=== PATIENT | male | born 1945 | race Caucasian/White ===

== ENCOUNTER 2019-09-09 10:59 | Inpatient (IN) | payer MEDICARE, OTHER, SELFPAY ==
[2019-09-09] VITALS (21 sets, daily range): BP systolic 81–215; BP diastolic 45–108; PULSE 74–104; RESP 11–30; TEMP 36.4–37.1; O2SAT 85–98; BMI 35.6
--- NOTE | 2019-09-09 | PATH_ITS ---
[facility] Accession Number: [id number] . 01 Material submitted: . PART A: small bowel - SMALL BOWEL PART B: gallbladder - GALLBLADDER AND CONTENTS . 01 Clinical history: . STOMACH CRAMPS, BAD . 02 Diagnosis: A. Small Bowel, Resection: Segment of small bowel with active inflammation, mural hemorrhage and serositis, consistent with ischemic enteritis. Histologically viable margins of resection. No evidence of neoplasm. . B. Gallbladder nad Contents, Cholecystectomy: Mild chronic cholecystitis with cholelithiasis. One benign cystic duct lymph node. No evidence of neoplasm. [facility] 09/13/2019 1128 Local . 02 Electronically signed: . Vasiliy Hanson MD, PhD, Pathologist NPI- [id number] . 01 Gross description: . (A) Received in formalin, labeled small bowel, is an unoriented segment of small bowel (length-77.5 cm, resection margin #1 diameter-2.1 cm, resection margin #2 diameter-2.5 cm) with attached mesentery (up to 6.0 cm in depth). The resection margins are received stapled. The serosa is red-brown, dusky, smooth and shiny. The mucosa is vera and red-brown and predominantly congested. A minimal amount of normal serosa and mucosa are identified at the resection margins. No nodules, masses, lesions, perforations or obstructions are identified. The resection margins are inked blue. Section code: (A1) resection margin #1, longitudinal healthcare sales representative sections; (A2) resection margin #2, healthcare sales representative longitudinal sections; (A3-A6) healthcare sales representative serial sections submitted from resection margin #1 to #2, each approximately 10 cm apart; (A7, A8) mesentery, healthcare sales representative serial sections. Note: After opening, this specimen has been reviewed by Dr. Kiarra Hanson. (B) Received in formalin, labeled gallbladder, is an intact gallbladder (length-12.6 cm, diameter-3.0 cm) with shields-purple smooth shiny serosa and a patent cystic duct. A 1.2 x 0.7 x 0.5 cm lymph node is identified. The lumen contains dark green viscous bile and multiple vera-yellow smooth hard calculi (4.5 x 2.3 x 1.2 cm in aggregate). The mucosa is green, smooth and flat. The wall is up to 0.1 cm thick. No nodules, masses or lesions are identified. Section code: (B1) cystic duct resection margin and two serial sections from the body; (B2) two longitudinal sections from the fundus; (B3) one bisected lymph node. ([id number]) /MRV 09/12/2019 1509 Local . 02 Pathologist provided ICD-10: K80.60, K56.609, K55.9 . 02 CPT . 637280, [id number] Performed at: 01 [facility] [address] [place] [address] [id number] MD Arcenio Guthrie MD Phone: [phone] Performed at: 02 [facility] [address] [place] [address] [id number] MD Lorraine Rodríguez MD Phone: [phone]
[2019-09-09] MEDS: SODIUM CHLORIDE 0.9% 1,000 ML 150 ML IV ×2 (11:33→20:40)
[2019-09-09] MEDS: ONDANSETRON 4 MG/2 ML INJ (11:33)
[2019-09-09 11:43] LABS: Add Manual Diff / Slide Review NO; Basophils Absolute Auto 100 /uL (0-100); Basophils Percent Auto 1.1 % (0-2); Eosinophils Absolute Auto 200 /uL (0-450); Hematocrit 46.9 % (41-53); Hemoglobin 16.5 g/dL (13.5-17.5); Lymphocytes Absolute Auto 2400 /uL (1100-4500); Mean Corpuscular HGB Conc 35.2 % (30-36); Mean Corpuscular Hemoglobin 30.7 PG (26-34); Mean Corpuscular Volume 87.2 fL (80-100); Monocytes Absolute Auto 1100 /uL (0-900); Monocytes Percent Auto 8.8 % (3-14); Neutrophils Absolute Auto 8200 /uL (1500-7000); Neutrophils Percent Auto 68.1 % (50-75); Platelet Count 195 X10^3/uL (150-400); Red Blood Cell Count 5.38 X10^6/uL (4.5-5.9); Red Cell Distribution Width 14.5 % (11.6-14.8); White Blood Cell Count 12.1 X10^3/uL (4.5-11.0)
[2019-09-09 11:50] LABS: Lactate (Lactic Acid) 1.7 mmol/L (0.7-2.1)
[2019-09-09 11:51] LABS: Alanine Aminotransferase 22 IU/L (<50); Albumin 4.5 g/dL (3.5-5.0); Albumin Globulin Ratio 1.5 (1.0-2.8); Alkaline Phosphatase 59 U/L (38-126); Aspartate Aminotransferase 24 IU/L (17-59); BUN Creatinine Ratio 28.6 (6-22); Blood Urea Nitrogen 20 mg/dL (9-20); Calcium 9.4 mg/dL (8.4-10.2); Carbon Dioxide 24 mmol/L (22-32); Chloride 103 mmol/L (98-107); Estimated Glomerular Filt Rate > 60.0 mL/min (>60); Globulin 3.1 g/dL (1.7-4.1); Glucose 338 mg/dL (80-110); HEMOLYSIS 21 (0-50); Lipase 110 U/L (23-300); Potassium 4.1 mmol/L (3.4-5.1); Sodium 138 mmol/L (137-145); Total Protein 7.6 g/dL (6.3-8.2)
--- NOTE | 2019-09-09 12:02 | DI.CT.S_ITS ---
PROCEDURE: CT ABDOMEN PELVIS W CON INDICATIONS: upper bilateral and RLQ pain with nausea TECHNIQUE: After the administration of intravenous contrast, 5 mm thick sections acquired from the diaphragm to the symphysis. 5 mm coronal and sagittal reformats were acquired. For radiation dose reduction, the following was used: automated exposure control, adjustment of mA and/or kV according to patient size. COMPARISON: None. FINDINGS: Image quality: There is motion artifact slightly limiting evaluation. ABDOMEN: Lung bases: There is mild dependent atelectasis bilaterally. Heart size is normal. Solid organs: Evaluation of the liver demonstrates no focal hepatic lesions. There are a few peripherally calcified gallstones within the gallbladder. Mild gallbladder wall thickening is demonstrated. Biliary system is non-dilated. Pancreas enhances normally. No peripancreatic fat stranding or fluid collections. No pancreatic duct dilatation. The spleen is normal in size. No adrenal nodules. Kidneys demonstrate no hydronephrosis. Peritoneum and bowel: There is segmental dilatation of small bowel loops in the right upper quadrant, measuring up to 3.5 cm in diameter with associated air-fluid levels. The proximal and distal transition points of this segmental dilatation a located in close proximity centered on series 2 image 40 and on coronal image 30. There is associated mild edema within the mesentery along this dilated segment. Small bowel loops proximal and distal to this dilated segment are nondistended. The findings are consistent with a probable early high-grade closed-loop small bowel obstruction. The appendix is normal in appearance. The colon demonstrates normal caliber and wall thickness. No free fluid or air. Nodes and vessels: No retroperitoneal or mesenteric adenopathy by size criteria. Aorta and inferior vena cava are normal in size. Miscellaneous: No ventral hernias. PELVIS: Genitourinary: Bladder wall thickness is normal. There is prominent distention of the urinary bladder. Miscellaneous: No inguinal hernias or adenopathy. Bones: No suspicious bony lesions. There is grade 2 anterolisthesis at L5-S1 measuring approximately 1 cm. There is an associated left-sided pars defect at L5. No vertebral body compression fractures. IMPRESSION: 1. Segmental dilatation of the small bowel in the right upper quadrant with air-fluid levels and adjacent transition points. The findings are suggestive of an early high-grade closed-loop small bowel obstruction. 2. Cholelithiasis with mild gallbladder wall thickening. The findings are nonspecific but developing cholecystitis cannot be excluded. Further evaluation may be obtained with ultrasound if clinically indicated. Findings discussed with him JF Myles on 09/09/19 at 12:45 PM. 3. Left pars defect at L5 with grade 2 anterolisthesis at L5-S1. Dictated by: Arcenio Almeida M.D. on 09/09/2019 at 12:47 Approved by: Arcenio Almeida M.D. on 09/09/2019 at 12:55
--- NOTE | 2019-09-09 12:23 | ED.ABDPAIN ---
HPI - Abdominal Pain <JF Boles - Last Filed: 09/10/19 01:36> General Chief Complaint: Abdominal Pain Stated Complaint: stomach cramps,bad Time Seen by Provider: 09/09/19 11:06 Source: patient Mode of arrival: Wheelchair Limitations: no limitations History of Present Illness HPI narrative: This is a 74-year-old male, prior smoker, who presents to ED with sudden onset of bilateral abdominal pain above the umbilicus and right lower quadrant with nausea and vomiting x1 since 06/02 this morning. Patient reports pain is constant and in cramping and rates as severe. Patient denies any aggravating and relieving factors. Patient states he had light breakfast this morning-brownie. Patient also reports had small hard and dark color stool and was constipated. Patient is not on anticoagulant. Patient has history of diabetes, hypertension, hyperlipidemia and takes insulin. Patient denies fever, chills. Related Data Home Medications Medication Instructions Recorded Confirmed Chondroitin Sulfate 1 tab PO DAILY 09/09/19 09/09/19 PreserVision AREDS 1 cap PO DAILY 09/09/19 09/09/19 dulaglutide [Trulicity] 0 mg SUBCUT QWEEK 09/09/19 09/09/19 insulin aspart U-100 [Novolog 0 unit SUBCUT PRN PRN 09/09/19 09/09/19 U-100 Insulin aspart] insulin detemir U-100 [Levemir 80 unit SUBCUT DAILY 09/09/19 09/09/19 FlexTouch U-100 Insuln] losartan 50 mg PO DAILY 09/09/19 09/09/19 [id number] lipoic acid-co Q10 1 cap PO DAILY 09/09/19 09/09/19 [Diabetic Vitamin] rosuvastatin 40 mg PO DAILY 09/09/19 09/09/19 Allergies Allergy/AdvReac Type Severity Reaction Status Date / Time No Known Drug Allergies Allergy Verified 09/09/19 11:47 Review of Systems <JF Boles - Last Filed: 09/10/19 01:36> Review of Systems Narrative: General: Denies fever, chills, fatigue, malaise, sweats. HEENT: Denies sinus pain, ear pain, sore throat, difficulty swallowing, dizziness. Respiratory: Denies dyspnea, cough, wheezing, hemoptysis, sputum. Cardiovascular: Denies chest pain, palpitations, orthopnea, edema. Gastrointestinal: See HPI : Denies dysuria, frequency, incontinence, hematuria, urinary retention. Musculoskeletal: Denies weakness, joint pain or bony pain. Skin: Denies rash, skin lesions, or other. Neurologic: Denies weakness, headache, numbness, change in speech, confusion, seizures, incoordination. Psychiatric: No concerning psychosocial issues. 12-point review of systems is negative except for those stated above. Patient History <JF Boles - Last Filed: 09/10/19 01:36> Medical History Diabetes (Acute) Hyperlipidemia (Acute) Hypertension (Acute) Surgical History History of cataract surgery (Acute) Social History household members: spouse Smoking Status: Former smoker alcohol intake: current Smoking Status: Former smoker alcohol intake frequency: holidays/special occasions only Substance Use Type: does not use Exam <JF Boles - Last Filed: 09/10/19 01:36> Narrative Exam Narrative: GEN: Alert, oriented x 3, well appearing and nourished, and in no acute distress. Head: Normal cephalic, atraumatic. No scalp or temporal tenderness, palpable mass or rash. EYES: Pupils are equal, round, and reactive to light and accommodation. Extraocular muscles are intact bilaterally. There is no subconjunctival hemorrhage, exudate and sclera non-icteric. ENT: Bilateral auditory canals obscured by cerumen. Hearing grossly intact. Nose without bleeding, purulent discharge or deviation. Facial sinuses nontender to palpate. Mucous membrane dry, no mucosal lesion. Throat without erythema, tonsillar hypertrophy or exudate. Uvula in midline, airway patent. Neck: Trachea in midline. No JVD, non-tender without lymphadenopathy. No masses or thyroid megaly. Supple, non-tender and no meningeal signs. CARDIAC: Normal regular rate and rhythm without murmurs, gallops, or rubs. No chest wall tenderness. No peripheral edema, cyanosis or pallor. Capillary refill is less than 2 seconds. RESPIRATORY: Lungs are clear to auscultate bilaterally. No cough, wheezes, rales, or rhonchi. No stridor, respiratory distress, increase work of breathing, or accessary muscle used. ABD: Abdomen soft, TTP in bilateral upper and RLQ pain and non-distended. No guarding and rebound to palpate. Bowel sounds are normal in all 4 quadrants. There is no palpable masses or organomegaly. EXT: Full painless ROM of all extremities with no loss of sensation, strength, effusion or edema. SKIN: Warm, dry, normal color for patient. No erythema, lesions or rash over visible areas. BACK: Nontender without deformity or crepitance. No flank tenderness. NEUROLOGICAL: Alert and oriented to place, time and person. Sensation and motor function intact bilaterally. No facial droops, dysphasia. PSYCHIATRIC: Good judgement and reason, without hallucinations, abnormal affect or abnormal behaviors during the examination. Initial Vital Signs Initial Vital Signs: Vital Signs Temperature 97.6 F 09/09/19 11:12 Pulse Rate 74 09/09/19 11:12 Respiratory Rate 21 09/09/19 11:12 Blood Pressure 215/105 H 09/09/19 11:12 Pulse Oximetry 94 09/09/19 11:12 <Meg Lee DO - Last Filed: 09/10/19 08:39> Initial Vital Signs Initial Vital Signs: Vital Signs Temperature 97.6 F 09/09/19 11:12 Pulse Rate 74 09/09/19 11:12 Respiratory Rate 21 09/09/19 11:12 Blood Pressure 215/105 H 09/09/19 11:12 Pulse Oximetry 94 09/09/19 11:12 Scores <JF Boles - Last Filed: 09/10/19 01:36> GCS Broadway coma scale eye opening: Spontaneous Broadway coma scale verbal response: Orientated Broadway coma scale motor response: Obey commands Broadway coma scale total score: 15 Course <JF Boles - Last Filed: 09/10/19 01:36> Course Course Narrative: At 1250-Radiologist called to inform high grade/acute mid upper abdomen small-bowel obstruction; gallbladder wall thickening Dr. Bauman consulted for CT findings of acute SBO and he kindly accepted the patient's care. US upper abdomen has been ordered for cholecystitis Decision to Admit Date: 09/09/19 Decision to Admit time: 12:50 Orders Ordered: Dextrose (D50w) 25 gm IV PRN PRN; Protocol PRN Reason: Hypoglycemia Enoxaparin Sodium (Lovenox) 40 mg SUBCUT DAILY [facility] Hydromorphone HCl (Dilaudid) 1 mg IV Q2HR [facility] Last Admin: 09/10/19 06:12 Dose: 1 mg Documented by: Admin: 09/10/19 06:06 Dose: Not Given Documented by: Admin: 09/10/19 05:19 Dose: Not Given Documented by: RCAMICHELLEIN Admin: 09/10/19 01:06 Dose: 1 mg Documented by: Admin: 09/10/19 00:06 Dose: Not Given Documented by: RCAMICHELLEIN Admin: 09/09/19 20:45 Dose: Not Given Documented by: RUTH Lactated Ringer's (Lactated Ringers) 1,000 mls @ 42 mls/hr IV NOW ONE Stop: 09/10/19 17:27 Last Infusion: 09/09/19 19:42 Dose: 0 mls/hr Documented by: Admin: 09/09/19 17:40 Dose: 42 mls/hr Documented by: Infusion: 09/09/19 17:40 Dose: 42 mls/hr Documented by: Admin: 09/09/19 16:30 Dose: 42 mls/hr Documented by: JEREMIAH Sodium Chloride (Normal Saline 0.9%) 1,000 mls @ 150 mls/hr IV CONT [facility] Last Admin: 09/10/19 03:22 Dose: 150 mls/hr Documented by: RCAMICHELLEIN Infusion: 09/10/19 03:21 Dose: 150 mls/hr Documented by: RCAMICHELLEIN Admin: 09/09/19 20:40 Dose: 150 mls/hr Documented by: KPASAIS Insulin Aspart (Novolog Flexpen) 0 unit SUBCUT Q6H [facility]; Protocol Last Admin: 09/10/19 06:10 Dose: 7 unit Documented by: CONSTANZA Cosigned by: DESHAWN Admin: 09/10/19 00:45 Dose: 3 unit Documented by: CONSTANZA Cosigned by: HBUSH Losartan Potassium (Cozaar) 50 mg PO DAILY [facility] Naloxone HCl (Narcan) 0.2 mg IV Q2MIN PRN PRN Reason: Opiate Reversal Ondansetron HCl (Zofran) 4 mg IV Q8HR PRN PRN Reason: Nausea And Vomiting Discontinued Medications Fentanyl (Sublimaze) 50 mcg IV Q1H PRN PRN Reason: Pain, Severe (7-10) Fentanyl (Sublimaze) 0 mcg IV Q5M PRN PRN Reason: Pain, Moderate (4-6) Hydromorphone HCl (Dilaudid) 0.5 mg IV NOW ONE Stop: 09/09/19 13:17 Last Admin: 09/09/19 13:23 Dose: 0.5 mg Documented by: DIEGO Hydromorphone HCl (Dilaudid) 0.5 mg IV NOW ONE Stop: 09/09/19 15:18 Last Admin: 09/09/19 15:32 Dose: 0.5 mg Documented by: JASWINDER [facility]drom[facility] (Dilaudid) 0 mg IV Q5M PRN PRN Reason: Pain, Moderate (4-6) Sodium Chloride (Normal Saline 0.9%) 1,000 mls @ 150 mls/hr IV CONT [facility] Last Infusion: 09/09/19 16:25 Dose: 0 mls/hr Documented by: Admin: 09/09/19 11:33 Dose: 150 mls/hr Documented by: DIEGO Sodium Chloride (Normal Saline 0.9%) 1,000 mls @ 150 mls/hr IV CONT [facility] Piperacillin/Tazobactam/Dextrose (Zosyn) 3.375 gm in 50 mls @ 100 mls/hr IV NOW ONE Stop: 09/09/19 16:57 Last Infusion: 09/09/19 16:45 Dose: 0 mls/hr Documented by: Admin: 09/09/19 16:30 Dose: 100 mls/hr Documented by: JEREMIAH Lactated Ringer's (Lactated Ringers) 1,000 mls @ 100 mls/hr IV CONT [facility] Insulin Aspart (Novolog Flexpen) 0 unit SUBCUT Q6H [facility]; Protocol Last Admin: 09/09/19 20:40 Dose: 3 unit Documented by: RUTH Cosigned by: RAMON Insulin Human Regular (Humulin R) 4 unit IV NOW ONE Stop: 09/09/19 16:18 Last Admin: 09/09/19 16:24 Dose: 4 unit Documented by: ALFREDITO Cosigned by: DANGELO Insulin Human Regular (Humulin R) 56 unit IV NOW ONE Stop: 09/09/19 19:39 Last Admin: 09/09/19 19:10 Dose: 6 unit Documented by: MARCIA Cosigned by: AUDIE Morphine Sulfate (Morphine) 2 mg IV NOW ONE Stop: 09/09/19 12:35 Last Admin: 09/09/19 12:39 Dose: 2 mg Documented by: DIEGO Naloxone HCl (Narcan) 0.2 mg IV Q2MIN PRN PRN Reason: Opiate Reversal Ondansetron HCl (Zofran) 4 mg IV NOW PRN PRN Reason: Nausea And Vomiting Vital Signs Vital signs: Vital Signs - 8 hr 09/09/19 11:12 09/09/19 12:30 Temperature 97.6 F Pulse Rate 74 85 Respiratory Rate 21 Blood Pressure 215/105 H Blood Pressure [Right Arm] 164/70 H Pulse Oximetry 94 <Meg Lee, DO - Last Filed: 09/10/19 08:39> Orders Ordered: Dextrose (D50w) 25 gm IV PRN PRN; Protocol PRN Reason: Hypoglycemia Enoxaparin Sodium (Lovenox) 40 mg SUBCUT DAILY [facility] Hydromorphone HCl (Dilaudid) 1 mg IV Q2HR [facility] Last Admin: 09/10/19 06:12 Dose: 1 mg Documented by: Admin: 09/10/19 06:06 Dose: Not Given Documented by: Admin: 09/10/19 05:19 Dose: Not Given Documented by: Admin: 09/10/19 01:06 Dose: 1 mg Documented by: Admin: 09/10/19 00:06 Dose: Not Given Documented by: Admin: 09/09/19 20:45 Dose: Not Given Documented by: RUTH Lactated Ringer's (Lactated Ringers) 1,000 mls @ 42 mls/hr IV NOW ONE Stop: 09/10/19 17:27 Last Infusion: 09/09/19 19:42 Dose: 0 mls/hr Documented by: Admin: 09/09/19 17:40 Dose: 42 mls/hr Documented by: Infusion: 09/09/19 17:40 Dose: 42 mls/hr Documented by: Admin: 09/09/19 16:30 Dose: 42 mls/hr Documented by: JEREMIAH Sodium Chloride (Normal Saline 0.9%) 1,000 mls @ 150 mls/hr IV CONT [facility] Last Admin: 09/10/19 03:22 Dose: 150 mls/hr Documented by: RCAMICHELLEIN Infusion: 09/10/19 03:21 Dose: 150 mls/hr Documented by: Admin: 09/09/19 20:40 Dose: 150 mls/hr Documented by: RUTH Insulin Aspart (Novolog Flexpen) 0 unit SUBCUT Q6H [facility]; Protocol Last Admin: 09/10/19 06:10 Dose: 7 unit Documented by: CONSTANZA Cosigned by: DESHAWN Admin: 09/10/19 00:45 Dose: 3 unit Documented by: CONSTANZA Cosigned by: DESHAWN Losartan Potassium (Cozaar) 50 mg PO DAILY [facility] Naloxone HCl (Narcan) 0.2 mg IV Q2MIN PRN PRN Reason: Opiate Reversal Ondansetron HCl (Zofran) 4 mg IV Q8HR PRN PRN Reason: Nausea And Vomiting Discontinued Medications Fentanyl (Sublimaze) 50 mcg IV Q1H PRN PRN Reason: Pain, Severe (7-10) Fentanyl (Sublimaze) 0 mcg IV Q5M PRN PRN Reason: Pain, Moderate (4-6) Hydromorphone HCl (Dilaudid) 0.5 mg IV NOW ONE Stop: 09/09/19 13:17 Last Admin: 09/09/19 13:23 Dose: 0.5 mg Documented by: DIEGO Hydromorphone HCl (Dilaudid) 0.5 mg IV NOW ONE Stop: 09/09/19 15:18 Last Admin: 09/09/19 15:32 Dose: 0.5 mg Documented by: JASWINDER Hydromorphone HCl (Dilaudid) 0.5 mg IV Q4HRWA [facility] Hydromorphone HCl (Dilaudid) 0 mg IV Q5M PRN PRN Reason: Pain, Moderate (4-6) Sodium Chloride (Normal Saline 0.9%) 1,000 mls @ 150 mls/hr IV CONT [facility] Last Infusion: 09/09/19 16:25 Dose: 0 mls/hr Documented by: Admin: 09/09/19 11:33 Dose: 150 mls/hr Documented by: DIEGO Sodium Chloride (Normal Saline 0.9%) 1,000 mls @ 150 mls/hr IV CONT [facility] Piperacillin/Tazobactam/Dextrose (Zosyn) 3.375 gm in 50 mls @ 100 mls/hr IV NOW ONE Stop: 09/09/19 16:57 Last Infusion: 09/09/19 16:45 Dose: 0 mls/hr Documented by: Admin: 09/09/19 16:30 Dose: 100 mls/hr Documented by: JEREMIAH Lactated Ringer's (Lactated Ringers) 1,000 mls @ 100 mls/hr IV CONT [facility] Insulin Aspart (Novolog Flexpen) 0 unit SUBCUT Q6H [facility]; Protocol Last Admin: 09/09/19 20:40 Dose: 3 unit Documented by: RUTH Cosigned by: RAMON Insulin Human Regular (Humulin R) 4 unit IV NOW ONE Stop: 09/09/19 16:18 Last Admin: 09/09/19 16:24 Dose: 4 unit Documented by: ALFREDITO Cosigned by: DANGELO Insulin Human Regular (Humulin R) 56 unit IV NOW ONE Stop: 09/09/19 19:39 Last Admin: 09/09/19 19:10 Dose: 6 unit Documented by: MARCIA Cosigned by: AUDIE Morphine Sulfate (Morphine) 2 mg IV NOW ONE Stop: 09/09/19 12:35 Last Admin: 09/09/19 12:39 Dose: 2 mg Documented by: DIEGO Naloxone HCl (Narcan) 0.2 mg IV Q2MIN PRN PRN Reason: Opiate Reversal Ondansetron HCl (Zofran) 4 mg IV NOW PRN PRN Reason: Nausea And Vomiting Vital Signs Vital signs: Vital Signs - 8 hr 09/09/19 11:12 09/09/19 12:30 Temperature 97.6 F Pulse Rate 74 85 Respiratory Rate 21 Blood Pressure 215/105 H Blood Pressure [Right Arm] 164/70 H Pulse Oximetry 94 MDM - Abdominal Pain <Jonh JF Hines - Last Filed: 09/10/19 01:36> Differential Diagnosis Differential diagnosis: Likely acute appendicitis, constipation, pancreatitis, small bowel obstruction and other (cholecystitis) Medical Records Attestation: I reviewed the patient's medical records. Lab Data Attestation: I reviewed the patient's lab results. Result diagrams: 09/09/19 11:27 09/09/19 11:27 Labs: Lab Results 09/09/19 09/09/19 09/09/19 Range/Units 11:27 11:27 11:27 WBC 12.1 H (4.5-11.0) X10^3/uL RBC 5.38 (4.5-5.9) X10^6/uL Hgb 16.5 (13.5-17.5) g/dL Hct 46.9 (41-53) % MCV 87.2 (80-100) fL MCH 30.7 (26-34) PG MCHC 35.2 (30-36) % RDW 14.5 (11.6-14.8) % Plt Count 195 (150-400) X10^3/uL Neut % (Auto) 68.1 (50-75) % Lymph % (Auto) 20.0 L (25-40) % [place] % (Auto) 8.8 (3-14) % Eos % (Auto) 2.0 (2-4) % Baso % (Auto) 1.1 (0-2) % Neut # (Auto) 8200 H (0789-2973) /uL Lymph # (Auto) 2400 (8091-6658) /uL [place] # (Auto) 1100 H (0-900) /uL Eos # (Auto) 200 (0-450) /uL Baso # (Auto) 100 (0-100) /uL Sodium 138 (137-145) mmol/L Potassium 4.1 (3.4-5.1) mmol/L Chloride 103 (98-107) mmol/L Carbon Dioxide 24 (22-32) mmol/L BUN 20 (9-20) mg/dL Creatinine 0.70 (0.66-1.25) mg/dL Estimated GFR > 60.0 (>60) mL/min BUN/Creatinine Ratio 28.6 H (6-22) Glucose 338 H (80-110) mg/dL Lactate 1.7 (0.7-2.1) mmol/L Calcium 9.4 (8.4-10.2) mg/dL Total Bilirubin 1.0 (0.2-1.3) mg/dL AST 24 (17-59) IU/L ALT 22 (<50) IU/L Alkaline Phosphatase 59 (38-126) U/L Total Protein 7.6 (6.3-8.2) g/dL Albumin 4.5 (3.5-5.0) g/dL Globulin 3.1 (1.7-4.1) g/dL Albumin/Globulin Ratio 1.5 (1.0-2.8) Lipase 110 (23-300) U/L Imaging Data CT scan - abdomen/pelvis: Radiologist's Impression: [address] [address] [address] Scan Report Signed Patient: Guanakito Chaidez JMR#: [id number] : 7Acct:[id number] Age/Sex: 74 / MDate of Service: 09/09/19 Loc: ED Accession Number: [id number] Procedure: CT abdomen pelvis w con Ordering Provider: Jonh Hines PROCEDURE: CT ABDOMEN PELVIS W CON INDICATIONS: upper bilateral and RLQ pain with nausea TECHNIQUE: After the administration of intravenous contrast, 5 mm thick sections acquired from the diaphragm to the symphysis. 5 mm coronal and sagittal reformats were acquired. For radiation dose reduction, the following was used: automated exposure control, adjustment of mA and/or kV according to patient size. COMPARISON: None. FINDINGS: Image quality: There is motion artifact slightly limiting evaluation. ABDOMEN: Lung bases: There is mild dependent atelectasis bilaterally. Heart size is normal. Solid organs: Evaluation of the liver demonstrates no focal hepatic lesions. There are a few peripherally calcified gallstones within the gallbladder. Mild gallbladder wall thickening is demonstrated. Biliary system is non-dilated. Pancreas enhances normally. No peripancreatic fat stranding or fluid collections. No pancreatic duct dilatation. The spleen is normal in size. No adrenal nodules. Kidneys demonstrate no hydronephrosis. Peritoneum and bowel: There is segmental dilatation of small bowel loops in the right upper quadrant, measuring up to 3.5 cm in diameter with associated air-fluid levels. The proximal and distal transition points of this segmental dilatation a located in close proximity centered on series 2 image 40 and on coronal image 30. There is associated mild edema within the mesentery along this dilated segment. Small bowel loops proximal and distal to this dilated segment are nondistended. The findings are consistent with a probable early high-grade closed-loop small bowel obstruction. The appendix is normal in appearance. The colon demonstrates normal caliber and wall thickness. No free fluid or air. Nodes and vessels: No retroperitoneal or mesenteric adenopathy by size criteria. Aorta and inferior vena cava are normal in size. Miscellaneous: No ventral hernias. PELVIS: Genitourinary: Bladder wall thickness is normal. There is prominent distention of the urinary bladder. Miscellaneous: No inguinal hernias or adenopathy. Bones: No suspicious bony lesions. There is grade 2 anterolisthesis at L5-S1 measuring approximately 1 cm. There is an associated left-sided pars defect at L5. No vertebral body compression fractures. IMPRESSION: 1. Segmental dilatation of the small bowel in the right upper quadrant with air-fluid levels and adjacent transition points. The findings are suggestive of an early high-grade closed-loop small bowel obstruction. 2. Cholelithiasis with mild gallbladder wall thickening. The findings are nonspecific but developing cholecystitis cannot be excluded. Further evaluation may be obtained with ultrasound if clinically indicated. Findings discussed with him JF Myles on 09/09/19 at 12:45 PM. 3. Left pars defect at L5 with grade 2 anterolisthesis at L5-S1. Dictated by: Arcenio Almeida M.D. on 09/09/2019 at 12:47 Approved by: Arcenio Almeida M.D. on 09/09/2019 at 12:55 US - abdomen: Radiologist's Impression: [address] [address] Ultrasound Report Signed Patient: Guanakito Chaidez JMR#: [id number] : 1945Acct:[id number] Age/Sex: 74 / MDate of Service: 09/09/19 Loc: [facility]34M-6 Accession Number: [id number] Procedure: US abdomen limited Ordering Provider: Jonh Hines PROCEDURE: US ABDOMEN LIMITED INDICATIONS: RUQ PAIN TECHNIQUE: Real-time focused scanning was performed of the abdomen, with image documentation. COMPARISON: [facility], CT, CT ABDOMEN PELVIS W CON, 09/09/2019, 12:13. FINDINGS: The liver is normal in size and demonstrates no focal lesions. A 1.4 cm stone can be seen lodged within the gallbladder neck. The gallbladder wall is not thickened, measuring 3 mm or less. No specific pericholecystic fluid is seen. The sonographic Garcia sign is positive. The biliary tree does not appear dilated. The pancreas is not seen. IMPRESSION: These imaging findings are suspicious for cholecystitis, with a gallstone seen lodged within the gallbladder neck positive sonographic Garcia's. However, the gallbladder wall does not appear thickened and there is no specific pericholecystic fluid. Please correlate with physical examination findings, patient presentation, and laboratory values. Dictated by: Sekou Morales M.D. on 09/09/2019 at 13:23 Approved by: Sekou Morales M.D. on 09/09/2019 at 13:24 MDM Narrative Medical decision making narrative: This is a 74-year-old gentleman who presents to ED bilateral upper abdomen and right lower quadrant discomfort with vomiting since 10:30 this morning. Patient has no previous abdominal surgery in the past. Mild leukocytosis of 12.1 with a neutrophil of 8200. Normal kidney function, normal liver function test including lipase. Patient's abdominal exam tender to palpate in right and left upper quadrant with right lower quadrant without distention with active bowel sounds. Radiologist a call in ED to inform there is segmental dilation of small bowel loops in the right upper quadrant with associated air-fluid levels with mild edema within the mesentery along this dilated segment which is probably early high-grade close loop small-bowel obstruction. There were also a few peripherally calcified gallstones within the gallbladder. Ultrasound was ordered to evaluate this. A there was a gallstone seen lodged within the gallbladder neck with positive Garcia's sign without thickened wall or mary cholecystic fluid. Patient has been gently hydrated in ED and medicated with Morphine, Dilaudid and Zofran. Patient reports pain has improved moderately and still has mild nausea intermittently. NG tube is being inserted. Patient was evaluated by Dr. Bauman in ED and will be taken into OR. <Meg Lee, DO - Last Filed: 09/10/19 08:39> Lab Data Labs: Lab Results 09/09/19 09/09/19 09/09/19 Range/Units 11:27 11:27 11:27 WBC 12.1 H (4.5-11.0) X10^3/uL RBC 5.38 (4.5-5.9) X10^6/uL Hgb 16.5 (13.5-17.5) g/dL Hct 46.9 (41-53) % MCV 87.2 (80-100) fL MCH 30.7 (26-34) PG MCHC 35.2 (30-36) % RDW 14.5 (11.6-14.8) % Plt Count 195 (150-400) X10^3/uL Neut % (Auto) 68.1 (50-75) % Lymph % (Auto) 20.0 L (25-40) % [place] % (Auto) 8.8 (3-14) % Eos % (Auto) 2.0 (2-4) % Baso % (Auto) 1.1 (0-2) % Neut # (Auto) 8200 H (7814-4560) /uL Lymph # (Auto) 2400 (1074-9208) /uL [place] # (Auto) 1100 H (0-900) /uL Eos # (Auto) 200 (0-450) /uL Baso # (Auto) 100 (0-100) /uL Sodium 138 (137-145) mmol/L Potassium 4.1 (3.4-5.1) mmol/L Chloride 103 (98-107) mmol/L Carbon Dioxide 24 (22-32) mmol/L BUN 20 (9-20) mg/dL Creatinine 0.70 (0.66-1.25) mg/dL Estimated GFR > 60.0 (>60) mL/min BUN/Creatinine Ratio 28.6 H (6-22) Glucose 338 H (80-110) mg/dL Lactate 1.7 (0.7-2.1) mmol/L Calcium 9.4 (8.4-10.2) mg/dL Total Bilirubin 1.0 (0.2-1.3) mg/dL AST 24 (17-59) IU/L ALT 22 (<50) IU/L Alkaline Phosphatase 59 (38-126) U/L Total Protein 7.6 (6.3-8.2) g/dL Albumin 4.5 (3.5-5.0) g/dL Globulin 3.1 (1.7-4.1) g/dL Albumin/Globulin Ratio 1.5 (1.0-2.8) Lipase 110 (23-300) U/L Discharge Plan Departure Patient Disposition: Admitted as Observation Clinical Impression: Small bowel obstruction Discharge Date/Time: 09/09/19 16:11 Admit Date/Time: 09/09/19 13:21 Admit Provider: Dandre Bauman
[2019-09-09] MEDS: MORPHINE 2 MG/ML INJ IV (12:39)
--- NOTE | 2019-09-09 12:55 | DI.US.S_ITS ---
PROCEDURE: US ABDOMEN LIMITED INDICATIONS: RUQ PAIN TECHNIQUE: Real-time focused scanning was performed of the abdomen, with image documentation. COMPARISON: [facility], CT, CT ABDOMEN PELVIS W CON, 09/09/2019, 12:13. FINDINGS: The liver is normal in size and demonstrates no focal lesions. A 1.4 cm stone can be seen lodged within the gallbladder neck. The gallbladder wall is not thickened, measuring 3 mm or less. No specific pericholecystic fluid is seen. The sonographic Garcia sign is positive. The biliary tree does not appear dilated. The pancreas is not seen. IMPRESSION: These imaging findings are suspicious for cholecystitis, with a gallstone seen lodged within the gallbladder neck positive sonographic Garcia's. However, the gallbladder wall does not appear thickened and there is no specific pericholecystic fluid. Please correlate with physical examination findings, patient presentation, and laboratory values. Dictated by: Sekou Morales M.D. on 09/09/2019 at 13:23 Approved by: Sekou Morales M.D. on 09/09/2019 at 13:24
[2019-09-09] MEDS: HYDROMORPHONE 0.5 MG INJ IV ×2 (13:23→15:32)
--- NOTE | 2019-09-09 15:39 | SUR.OPER ---
Supine on padded OR bed, head on pillow, arms secured on padded arm boards at <90 degrees abduction, legs uncrossed, safety belt at thigh, tape over blanket over lower legs.
--- NOTE | 2019-09-09 15:47 | PM.HP.1 ---
History of Present Illness History of Present Illness Date Patient Seen: 09/09/19 Time Patient Seen: 15:52 Chief complaint: stomach cramps,bad Narrative: This is a 74-year-old male with no prior abdominal surgery who presents with acute small-bowel obstruction. Over the course of the past 12 hours he has developed severe bilateral lower quadrant abdominal pain associated with nausea and bilious emesis. No no flatus, last bowel movement yesterday. He in the emergency room he received a CT exam of the abdomen pelvis which demonstrates some small-bowel obstruction with a clear transition point and some associated thickened mesentery and stranding of the bowel. No prior similar episodes. Pain improved with morphine. Admission with white blood cell count 12 lactic acid 1.7 creatinine normal. Past medical history is significant for diabetes on insulin, obesity, htn. Non smoker no anticoagulation. Patient History Medical History Diabetes (Acute) Hyperlipidemia (Acute) Hypertension (Acute) Surgical History History of cataract surgery (Acute) Family & Social History Safety & Behavioral: Feels Safe in Current Yes Environment Been Physically Hurt or No Threatened By a Person Tobacco & Substance use: Smoking Status Former smoker alcohol intake frequency holiday/special occasion Substance Use Type does not use Meds Home Medications and Allergies Home Medications Medication Instructions Recorded Confirmed Type Chondroitin Sulfate 1 tab PO DAILY 09/09/19 09/09/19 History PreserVision AREDS 1 cap PO DAILY 09/09/19 09/09/19 History dulaglutide [Trulicity] 0 mg SUBCUT QWEEK 09/09/19 09/09/19 History insulin aspart U-100 [Novolog 0 unit SUBCUT PRN PRN 09/09/19 09/09/19 History U-100 Insulin aspart] insulin detemir U-100 [Levemir 80 unit SUBCUT DAILY 09/09/19 09/09/19 History FlexTouch U-100 Insuln] losartan 50 mg PO DAILY 09/09/19 09/09/19 History [id number] lipoic acid-co Q10 1 cap PO DAILY 09/09/19 09/09/19 History [Diabetic Vitamin] rosuvastatin 40 mg PO DAILY 09/09/19 09/09/19 History Allergies Allergy/AdvReac Type Severity Reaction Status Date / Time No Known Drug Allergies Allergy Verified 09/09/19 11:47 Review of Systems Review of Systems Narrative: A 10 point review of systems is negative except as noted in the HPI Exam Vital Signs (past 8 hours): - 09/09/19 11:12 09/09/19 12:30 09/09/19 13:34 Temperature 97.6 F Pulse Rate 74 85 86 Respiratory Rate 21 13 Blood Pressure 215/105 H Blood Pressure [Right Arm] 164/70 H 214/103 H Pulse Oximetry 94 94 09/09/19 14:00 09/09/19 14:20 09/09/19 14:22 Temperature Pulse Rate 88 92 H Respiratory Rate 20 17 16 Blood Pressure Blood Pressure [Right Arm] 203/98 H Pulse Oximetry 93 92 09/09/19 14:59 09/09/19 15:45 Temperature Pulse Rate 89 90 Respiratory Rate 19 13 Blood Pressure Blood Pressure [Right Arm] 204/97 H 188/95 H Pulse Oximetry 92 97 Oxygen Delivery Method Room Air Narrative Exam Narrative: General-no acute distress, obese male HEENT-moist mucous membranes, no scleral icterus Neck-supple, no lymphadenopathy Chest- non labored respirations, clear to auscultation bilaterally Cardiac-regular rate no peripheral edema Abdomen-mildly distended tender right lower quadrant no peritonitis Extremities-warm, well perfused Neurological-alert and oriented, no focal deficits Objective Labs Result Diagrams: 09/09/19 11:27 09/09/19 11:27 Labs: Laboratory Results - last 24 hr 09/09/19 09/09/19 09/09/19 11:27 11:27 11:27 WBC 12.1 H RBC 5.38 Hgb 16.5 Hct 46.9 MCV 87.2 MCH 30.7 MCHC 35.2 RDW 14.5 Plt Count 195 Neut % (Auto) 68.1 Lymph % (Auto) 20.0 L [place] % (Auto) 8.8 Eos % (Auto) 2.0 Baso % (Auto) 1.1 Neut # (Auto) 8200 H Lymph # (Auto) 2400 [place] # (Auto) 1100 H Eos # (Auto) 200 Baso # (Auto) 100 Sodium 138 Potassium 4.1 Chloride 103 Carbon Dioxide 24 BUN 20 Creatinine 0.70 Estimated GFR > 60.0 BUN/Creatinine Ratio 28.6 H Glucose 338 H Lactate 1.7 Calcium 9.4 Total Bilirubin 1.0 AST 24 ALT 22 Alkaline Phosphatase 59 Total Protein 7.6 Albumin 4.5 Globulin 3.1 Albumin/Globulin Ratio 1.5 Lipase 110 Assessment & Plan Assessment and plan (1) Small bowel obstruction: Current visit: Yes Status: Acute Assessment & Plan narrative: This is a 74-year-old male with acute small-bowel obstruction with no history of prior abdominal surgery. Tender without peritonitis right and left lower quadrant, no hernias. Laboratory studies reviewed white blood cell count 12 hematocrit 47 creatinine 0.7 normal LFTs. I reviewed this CAT scan which demonstrates a small-bowel obstruction with clear transition point in the mid abdomen with some thickening of the associated mesentery. No free air minimal amount of free fluid. Long discussion with the patient and his regarding his diagnosis of a small-bowel obstruction. In the setting of no prior abdominal surgery recommendation is that we proceed with an exploratory laparotomy. We discussed the risks of the operation including bleeding infection damage to surrounding structures anastomotic leak. In addition he has a large gallstone located within the neck of the gallbladder and has episodes of biliary colic for which will remove his gallbladder during the course of this operation as well. -NG tube NPO IV fluids -OR exploratory laparotomy possible bowel resection, cholecystectomy -Zosyn prior to skin incision
[2019-09-09] MEDS: INSULIN REGULAR 100 UNIT/ML 3 ML VIAL IV (16:24)
[2019-09-09] MEDS: PIPERACILLIN-TAZO 3.375 GM/50 ML FROZ.PIGGY IV (16:30)
[2019-09-09] MEDS: LACTATED RINGERS 1,000 ML 42 ML IV ×2 (16:30→17:40)
[2019-09-09] MEDS: INSULIN REGULAR 100 UNIT/ML 3 ML VIAL 56 UNIT IV (19:10)
--- NOTE | 2019-09-09 19:42 | PM.OP.1 ---
Operative Date/Time/Diagnoses Date of procedure: 09/09/19 Time of procedure: 19:42 Pre-op diagnosis: small bowel obstruction biliary colic Post-op diagnosis: same Procedure & Clinicians Procedure: Exploratory laparotomy Small-bowel resection Cholecystectomy Same procedure as scheduled: Yes Indications: This 74-year-old male who has no history of prior abdominal surgery and presented with an acute small-bowel obstruction. CT demonstrates of closed loop obstruction with thickening of the mesentery clear transition point and bowel wall thickening. In addition he has history of biliary colic and he has of several gallstones identified on imaging. Surgeon: Dandre Bauman Anesthesia Type: General Operative Notes Findings: Infarcted mid small bowel approximately 16 in. Specimen(s): other (Small-bowel, gallbladder) Estimated Blood Loss (mL): 50 Procedure in detail: Patient brought to the operating room placed supine on the table. Bilateral lower extremity compression devices were applied. He received 3.375 g of Zosyn per prior to skin incision. General anesthesia was induced and he was intubated with an endotracheal tube. Prepped and draped sterile fashion. Time-out performed ensuring correct patient procedure necessary equipment within the operating room. Been admitted generous midline incision. Subcutaneous tissues were divided and the fascia was incised sharply. The abdomen was entered atraumatically. The small bowel was eviscerated. Inspection of the small bowel from the ligament of Treitz to the terminal ileum demonstrated that there is a portion of approximately 16 in and mid small bowel that was infarcted/ischemic in nature. There was no evidence of volvulus. Window within the mesentery was made proximal and distal to the resected segment. The Endo-BECKI stapler using the blue load was used to transect the small bowel. The mesentery was then taken using the LigaSure device. Who several areas within the mesentery were quite thickened and required over-sewing with silk suture to control hemostasis. The bowel was resected back to healthy soft pliable tissue. A vaiz-yv-spwy functional and end anastomosis was fashion. An enterotomy was made in each and the bowel stapled was passed and used to create a common channel using the blue staple load. Inspection of the common channel demonstrated hemostasis as well as widely patent. Common enterotomy was then closed using a running PDS suture. The mesentery defect was then reapproximated using PDS suture. Content flowed freely between the proximal and distal bowel across the anastomosis without evidence of leak. Next a made a review of his hemodynamics and he was stable. Then proceeded with a cholecystectomy. Past exposure of the right upper quadrant demonstrated numerous gallstones within the gallbladder. Top-down approach was used. The gallbladder was grasped with a sponge stick and then the peritoneum overlying it was incised using electrocautery. At the base of the gallbladder the triangle of BOB was incised. The cystic artery and cystic duct were identified within the triangle. I used the TA stapler with a white vascular load to transect the cystic artery and cystic duct high on the gallbladder. The gallbladder was then passed off the field as specimen. The abdomen was then irrigated with 4 L of sterile holes saline. Hemostasis was checked. Then proceeded to close the fascia of the midline using a 1. PDS from above and below in running fashion. With the fascia closed the subcutaneous tissues were reapproximated and the skin closed with mike. Patient tolerated procedure well. They emerged from anesthesia was extubated and transferred to the postoperative care unit in stable condition. Complications: none
--- NOTE | 2019-09-09 19:43 | SUR.PHASEI ---
Moved patient over to his right side for comfort. Changed gown due to leakage from NG tube which was not secured well from OR procedure. Abdominal binder in place but has small amount of NG tube drainage noted. Dressing to midline abdominal wall clean, dry and intact.
[2019-09-09] MEDS: INSULIN ASPART 100 UNIT/ML INSULN PEN SUBCUT (20:40)
--- NOTE | 2019-09-09 20:48 | PC.NURSE ---
Addendum entered by Germania Marley R.N. 09/09/19 22:54: Pt tolerating Bipap well. Sats >95% at all times, even when sleeping. Alarming frequently due to leak caused by NGT. Attempted to place tegaderm for better seal to allow more audible comfort for patient. 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 Hesitant to administer narcan and reverse all pain control. Addendum entered by Germania Marley R.N. 09/09/19 22:01: RT at bedside to place pt on BiPAP. Short term solution to apnea for now d/t NGT causing air leak and potential for skin breakdown. Pt tolerating well- 98% while sleeping. 07/08 rate 16 40% Addendum entered by Germania Marley R.N. 09/09/19 21:38: Pt remains apneic- needing stimulation from staff almost every minute to wake up and breathe. Narcan on hand. Called Dr. Bauman- discussed placing pt on bipap overnight...will follow up after RT speaks with Dr. Bauman. Original Note: Pt arrived from PACU 20:03. Arousable with to voice and physical touch. HR 98 SR, 139/80 93% placed on 5LNC, desats to 84% on RA and when asleep. Pt apneic- requiring nurse at bedside to wake up and take a breath. Trying NC in mouth and nose. Desatted to 72% on 5LNC, placed on NRB- now satting 96%. Abdomen soft tender. No bowel sounds. Binder in place, abdomen wtih large middline incisional dressing with minimal drainage -sanguinous- noted. Outlined for monitoring. NS@150 via 20g LAC. BS 286 upon arrival- 3units given. NGT to LIS- dark brown bile resulting.
[2019-09-10] VITALS (14 sets, daily range): BP systolic 124–179; BP diastolic 66–81; PULSE 88–102; RESP 16–24; TEMP 36.7–37.6; O2SAT 88–95
[2019-09-10] MEDS: INSULIN ASPART 100 UNIT/ML INSULN PEN SUBCUT ×4 (00:45→17:59)
[2019-09-10] MEDS: HYDROMORPHONE 1 MG INJ IV ×5 (01:06→19:20)
--- NOTE | 2019-09-10 01:37 | PC.NURSE ---
Addendum entered by Lars Simon R.N. 09/10/19 07:29: 0400: Assessment unchanged. Tolerating BiPAP well. 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 Remains on BiPAP due to apnea, with O2 at 40%. IVs in place in lt forearm and lt AC. NGT patent, on LIS. Pt denies pain at this time. SCDs on. at bedside. 0030: went home. CBG 279: 3U Novalog given. 0100: Pt states he is having 5/10 pain in abdomen. Medicated with scheduled Dilaudid 1mg IV.
[2019-09-10] MEDS: SODIUM CHLORIDE 0.9% 1,000 ML 150 ML IV ×3 (03:22→17:57)
[2019-09-10 08:42] LABS: Add Manual Diff / Slide Review NO; Basophils Absolute Auto 100 /uL (0-100); Basophils Percent Auto 0.3 % (0-2); Eosinophils Absolute Auto 0 /uL (0-450); Hematocrit 46.2 % (41-53); Hemoglobin 16.1 g/dL (13.5-17.5); Lymphocytes Absolute Auto 2000 /uL (1100-4500); Lymphocytes Percent Auto 9.6 % (25-40); Mean Corpuscular HGB Conc 34.9 % (30-36); Mean Corpuscular Hemoglobin 31.1 PG (26-34); Monocytes Absolute Auto 2300 /uL (0-900); Monocytes Percent Auto 11.3 % (3-14); Neutrophils Absolute Auto 16200 /uL (1500-7000); Neutrophils Percent Auto 78.8 % (50-75); Platelet Count 208 X10^3/uL (150-400); Red Blood Cell Count 5.19 X10^6/uL (4.5-5.9); White Blood Cell Count 20.5 X10^3/uL (4.5-11.0)
[2019-09-10 08:52] LABS: Blood Urea Nitrogen 33 mg/dL (9-20); Calcium 7.8 mg/dL (8.4-10.2); Carbon Dioxide 22 mmol/L (22-32); Chloride 107 mmol/L (98-107); Estimated Glomerular Filt Rate > 60.0 mL/min (>60); Glucose 355 mg/dL (80-110); HEMOLYSIS 42 (0-50); Magnesium 1.6 mg/dL (1.6-2.3); Phosphorous 4.1 mg/dL (2.3-3.7); Sodium 138 mmol/L (137-145)
[2019-09-10] MEDS: ENOXAPARIN 40 MG/0.4 ML SYRINGE SUBCUT (11:23)
[2019-09-10] MEDS: LOSARTAN 50 MG TABLET PO (11:30)
--- NOTE | 2019-09-10 11:36 | RT ---
RT Note: Pt was placed on Bipap last night at 2200. No provider notes yet about this. At 0800 this AM, I took pt off Bipap and placed him to nasal cannula. Nurse Nanda at bedside.
--- NOTE | 2019-09-10 11:52 | PC.NURSE ---
Addendum entered by Nanda Narayan R.N. 09/10/19 14:37: Dr Sandoval awaiting contact from Dr Fisher, but added A1c and discussed adding low dose LEvimer to cover Pt post op. Await orders. Pt is Up to chair and doing well with pain control. Up visiting with friends at bedside. 5L Spo2 93%. BT hypoactive. NG to LIS. Addendum entered by Nanda Narayan R.N. 09/10/19 13:48: BT continue hypoactive, tolerating ice chips and sips of H20. CBG 313 @ noon, high dose SS increased, will address long acting insulin with Dr Fisher. Add-1340 Dr Fisher will add hospitalist consult, order placed and Dr to update as soon as Dr Fisher able. Update to Dr Sandoval, who will address DM management. Original Note: Am shift Pt is A/o x3, drowsy this AM. Bipap in use.NG tube patent, to LIS, some leaking to NG suction, as tube has damage to tri valve, replacing tube is only solution to fix tubing. Pt expresses desire to trial off bipap. RT into facilitate transition to RA. Lungs are clear T/O continue to enc DB & C, splinting instruction provided, and demonstrated. NC with Spo2 93% on 5L. Patient tolerated well. IV Dilaudid given for 6/10 ABD pain, resulting in desatting, continuous pulse ox in place.
[2019-09-10] MEDS: MAGNESIUM SULFATE 2 GM/50 ML PIGGYBACK IV (13:04)
[2019-09-10 14:24] LABS: Hemoglobin A1C% w Est Avg Glu 8.5 % (4.0-6.0)
--- NOTE | 2019-09-10 14:48 | P.PN_ITS ---
Subjective Subjective Date Patient Seen: 09/10/19 Time Patient Seen: 12:30 Interval history: No acute events overnight. Denies flatus. Pain controlled with IV pain meds. Williamson still in place. Patient has not ambulated yet. Exam Vital Signs (past 8 hours): - 09/10/19 07:45 09/10/19 08:39 09/10/19 11:30 Temperature 99.7 F H Pulse Rate 100 H 100 H 88 Respiratory Rate 18 20 Blood Pressure 147/78 H Pulse Oximetry 92 09/10/19 11:45 Temperature 99.6 F Pulse Rate 97 H Respiratory Rate 16 Blood Pressure 137/66 Pulse Oximetry 88 L Fraction of Inspired Oxygen 40 Oxygen Delivery Method Nasal Cannula Oxygen Flow Rate 6 Narrative Exam Narrative: GENERAL: Alert, comfortable, conversant HENT: NG tube in place, no bleeding or swelling around the tube; NG tube is something appropriately CARDIOVASCULAR: Regular rate. No pedal edema. RESPIRATORY: Non-tachypneic, breathing comfortably on room air. GASTROINTESTINAL: Abdomen soft and moderately distended, dressings clean and intact GENITALURINARY: No flank tenderness. MUSCULOSKELETAL: Equal tone and mass bilaterally. SKIN: Warm, dry, soft, appropriate color for ethnicity. No other lesions, rashes, or wounds. NEURO: Alert and Oriented X 3. No gross sensory deficits, or cognitive issues. PSYCH: Appropriate affect and mood. Objective Labs Result Diagrams: 09/10/19 08:25 09/10/19 08:25 Labs: Laboratory Results - last 24 hr 09/10/19 09/10/19 09/10/19 02:28 08:25 08:25 WBC 20.5 H D RBC 5.19 Hgb 16.1 Hct 46.2 MCV 89.0 MCH 31.1 MCHC 34.9 RDW 15.0 H Plt Count 208 Neut % (Auto) 78.8 H Lymph % (Auto) 9.6 L [place] % (Auto) 11.3 Eos % (Auto) 0.0 L Baso % (Auto) 0.3 Neut # (Auto) 32206 H Lymph # (Auto) 2000 [place] # (Auto) 2300 H Eos # (Auto) 0 Baso # (Auto) 100 Sodium 138 Potassium 5.0 Chloride 107 Carbon Dioxide 22 BUN 33 H Creatinine 1.10 Estimated GFR > 60.0 BUN/Creatinine Ratio 30.0 H Glucose 355 H Hemoglobin A1c Calcium 7.8 L Phosphorus 4.1 H Magnesium 1.6 Nasal Screen MRSA (PCR) Negative for mrsa 09/10/19 08:25 WBC RBC Hgb Hct MCV MCH MCHC RDW Plt Count Neut % (Auto) Lymph % (Auto) [place] % (Auto) Eos % (Auto) Baso % (Auto) Neut # (Auto) Lymph # (Auto) [place] # (Auto) Eos # (Auto) Baso # (Auto) Sodium Potassium Chloride Carbon Dioxide BUN Creatinine Estimated GFR BUN/Creatinine Ratio Glucose Hemoglobin A1c 8.5 H Calcium Phosphorus Magnesium Nasal Screen MRSA (PCR) Assessment & Plan Assessment and plan (1) Small bowel obstruction: Current visit: Yes Status: Acute (2) Status post laparotomy: Current visit: Yes Status: Acute Assessment & Plan narrative: 72-year-old man postop day 1 from exploratory laparotomy and small-bowel resection. NG tube is in place and something, he is not nauseated. He has not passed any gas from his bottom. Labs are a ppropriate, dressing looks appropriate. He is markedly hyperglycemic. At home he is on long and short-acting insulin. Plan: Ambulate 20 minutes t.i.d. Keep Williamson in for today, we'll plan on removing it tomorrow morning IV pain med, and time medics Will request help from hospitalist for blood sugar management If patient passes gas, will consider removing NG tube Time Spent With Patient Time with patient: 15-24 minutes Quality VTE Deep Vein Thrombosis/Pulmonary Embolism Present on Admission: No
--- NOTE | 2019-09-10 19:02 | DI.RAD.S_ITS ---
PROCEDURE: XR CHEST 1V INDICATIONS: oxygen requirements and low grade fever TECHNIQUE: One view of the chest was acquired. COMPARISON: [facility], US, US ABDOMEN LIMITED, 09/09/2019, 13:07. [facility], CT, CT ABDOMEN PELVIS W CON, 09/09/2019, 12:13. FINDINGS: Surgical changes and devices: A gastric tube is seen, the tip coiled overlying the proximal stomach. Lungs and pleura: An incomplete inspiratory result is noted, causing a crowded appearance to the lung markings. No focal infiltrates are seen. No pneumothorax or significant pleural effusions are seen. Mediastinum: The cardiac contours are within normal limits. The aorta demonstrates calcification and tortuosity. Bones and chest wall: No suspicious bony lesions. Overlying soft tissues appear unremarkable. IMPRESSION: Low lung volumes. The tip of the gastric tube is seen overlying the mid stomach. Dictated by: Sekou Morales M.D. on 09/10/2019 at 19:34 Approved by: Sekou Morales M.D. on 09/10/2019 at 19:35
--- NOTE | 2019-09-10 20:27 | P.CONS_ITS ---
History of Present Illness Consult details Date Patient Seen: 09/10/19 Time Patient Seen: 19:55 Chief complaint: stomach cramps,bad Reason for consult: Hyperglycemia Requesting provider: Sadie Fisher Narrative: Mr. Guanakito Chaidez is a 74-year-old male history significant for type 2 diabetes, hypertension, hyperlipidemia who presented to the ER with abdominal pain on 09/09/2019. On evaluation the patient was found to have an acute closed loop small-bowel obstruction with mesenteric thickening. The patient is also found to have a large gallstone located the neck of the gallbladder with history of episodic biliary colic. The patient is status post laparotomy, resection of 16 in of necrotic small bowel and cholecystectomy by Dr. Bauman on 09/09/2019. Before the onset of his abdominal pain he has had no complaints of pain or problems. He reports no recent colder illness and has had no fevers or chills. He denies shortness of breath cough or wheezing and has no chest pain or palpitations. He became nauseated with the onset of his abdominal pain with non bilious emesis. He further reports feeling constipated. He denies difficulty urinating and presently has an indwelling Williamson catheter. The medicine team has been asked to consult to assist with blood sugar management. The patient is a type 2 diabetes using Trulicity, Levemir and mealtime insulin of 20 units. Patient denies retinopathy, nephropathy or neuropathy. He has had hypoglycemic episodes in past but none recent. On admission the patient had a blood sugar of 338 and this morning is found to be 355. His hemoglobin A1c on admission is 8.5. He has been on fingerstick blood sugar checks every 6 hours with high-dose sliding scale. Meds Home Medications and Allergies Home Medications Medication Instructions Recorded Confirmed Type Chondroitin Sulfate 1 tab PO DAILY 09/09/19 09/09/19 History PreserVision AREDS 1 cap PO DAILY 09/09/19 09/09/19 History dulaglutide [Trulicity] 0 mg SUBCUT QWEEK 09/09/19 09/09/19 History insulin aspart U-100 [Novolog 0 unit SUBCUT PRN PRN 09/09/19 09/09/19 History U-100 Insulin aspart] insulin detemir U-100 [Levemir 80 unit SUBCUT DAILY 09/09/19 09/09/19 History FlexTouch U-100 Insuln] losartan 50 mg PO DAILY 09/09/19 09/09/19 History [id number] lipoic acid-co Q10 1 cap PO DAILY 09/09/19 09/09/19 History [Diabetic Vitamin] rosuvastatin 40 mg PO DAILY 09/09/19 09/09/19 History Allergies Allergy/AdvReac Type Severity Reaction Status Date / Time No Known Drug Allergies Allergy Verified 09/09/19 11:47 Review of Systems Review of Systems Narrative: All systems reviewed and found unremarkable under discussed in the HPI above. Exam Vital Signs (past 8 hours): - 09/10/19 15:54 09/10/19 17:38 09/10/19 19:04 Temperature 98.5 F 99.7 F H 99.6 F Pulse Rate 99 H 101 H Respiratory Rate 18 16 Blood Pressure 163/74 H 179/81 H Pulse Oximetry 92 90 L Fraction of Inspired Oxygen 40 Oxygen Delivery Method Nasal Cannula Oxygen Flow Rate 5.5 Narrative Exam Narrative: GENERAL APPEARANCE: well developed, obese male, BMI of 35.6, mildly uncomfortable appearing. HEENT: Normocephalic, PERRLA, conjunctiva clear, sclera is anicteric, EOMs intact without nystagmus, NG tube in place draining clear to light green fluid, mucous membranes are dry and pink without lesions or exudate. NECK/THYROID: neck supple, no JVD, no carotid bruit, no thyromegaly, trachea midline. LYMPH NODES: no cervical or supraclavicular lymphadenopathy. SKIN: [place], warm and dry, no visible lesions, rashes, ulcerations or petechiae. HEART: regular rate and rhythm, S1-S2, no murmur, no rubs or gallops, brisk capillary refill, no edema LUNGS: clear to auscultation bilaterally, no coarseness crackles or wheezing, no cough present CHEST: Symmetrical movement, no accessory muscle use, good tidal volume. ABDOMEN: Abdomen distended, tender to palpation, abdominal binder in place, very hypoactive bowel tones, Williamson catheter draining pale yellow urine. EXTREMITIES: moves all extremities, strength is 5/5 and symmetrical, no deformities. NEUROLOGIC: AAO x4, no focal neurologic deficits, cranial nerves II-XII grossly intact, sensation intact to light touch, hearing grossly normal to speech. PSYCH: Cooperative, linear thought process, appropriate with stable behavior Objective Labs Result Diagrams: 09/10/19 08:25 09/10/19 08:25 Labs: Laboratory Results - last 24 hr 09/10/19 09/10/19 09/10/19 02:28 08:25 08:25 WBC 20.5 H D RBC 5.19 Hgb 16.1 Hct 46.2 MCV 89.0 MCH 31.1 MCHC 34.9 RDW 15.0 H Plt Count 208 Neut % (Auto) 78.8 H Lymph % (Auto) 9.6 L [place] % (Auto) 11.3 Eos % (Auto) 0.0 L Baso % (Auto) 0.3 Neut # (Auto) 80109 H Lymph # (Auto) 2000 [place] # (Auto) 2300 H Eos # (Auto) 0 Baso # (Auto) 100 Sodium 138 Potassium 5.0 Chloride 107 Carbon Dioxide 22 BUN 33 H Creatinine 1.10 Estimated GFR > 60.0 BUN/Creatinine Ratio 30.0 H Glucose 355 H Hemoglobin A1c Calcium 7.8 L Phosphorus 4.1 H Magnesium 1.6 Nasal Screen MRSA (PCR) Negative for mrsa 09/10/19 08:25 WBC RBC Hgb Hct MCV MCH MCHC RDW Plt Count Neut % (Auto) Lymph % (Auto) [place] % (Auto) Eos % (Auto) Baso % (Auto) Neut # (Auto) Lymph # (Auto) [place] # (Auto) Eos # (Auto) Baso # (Auto) Sodium Potassium Chloride Carbon Dioxide BUN Creatinine Estimated GFR BUN/Creatinine Ratio Glucose Hemoglobin A1c 8.5 H Calcium Phosphorus Magnesium Nasal Screen MRSA (PCR) Assessment & Plan Assessment & Plan narrative: This is a 74-year-old male patient who presents to the ER with sudden onset of severe abdominal pain 12 hours prior to arrival. Patient was diagnosed with an acute small-bowel obstruction and cholelithiasis. He is postop day 1 following exploratory laparotomy with resection of infarcted small bowel and cholecystectomy. 1. Acute small-bowel obstruction status post small bowel resection, active -POD #1- Status post exploratory laparotomy with resection of 16 in of infarcted small bowel. -Patient reports pain is manageable with current medication regimen. -Nasal gastric tube in place with clear to faintly green drainage. -Receiving normal saline at 150 cc/hour. -receiving Zosyn 3.375 g IV every 8 hours. -He continues to be NPO with very hypoactive bowel tones but no flatus. -Postoperative care per the surgical team. 2. Acute Cholelithiasis without cholecystitis, status post cholecystectomy, active. -On imaging the patient is found have a large stone lodged in the neck of the gallbladder with intermittent reports of biliary colic. -POD #1-status post cholecystectomy. -Postoperative care per the surgical team. 3. Diabetes type 2, insulin dependent, active -Patient with history type 2 diabetes without complications requiring multi modal management with Trulicity, Levemir and mealtime insulin. -Blood sugar on admission labs was 338, and today was higher at 355. Most recent fingerstick blood sugar this evening was 295. -continue fingerstick blood sugars every 6 hours while NPO. -continue correctional insulin sliding scale high dose range. -ordered Lantus 10 units tonight, will re-evaluate blood sugar in the morning and consider Lantus 10 units twice daily. -follow fingerstick blood sugars and chemistries and adjust glycemic control as needed. -We will adjust glycemic regimen when patient begins taking PO's. 4. Essential Hypertension, chronic, active -patient with elevated blood pressure on upon admission at 142/75. -patient with elevated blood pressures postoperatively to 179/81 this evening, elevation related to pain. -home regimen of losartan 50 mg daily is being held due to NPO status. -addition of antihypertensive not indicated at this time unless remains elevated with adequate pain management. -will follow blood pressures closely. 5. Dyslipidemia, chronic, active -patient is NPO, patient's home regimen rosuvastatin 40 mg daily on hold, may resume when taking PO's. Thank you for allowing us to participate in this gentleman's care. We will continue to follow for glycemic control and as needed.
[2019-09-10] MEDS: PIPERACILLIN-TAZO 3.375 GM/50 ML FROZ.PIGGY IV (20:50)
[2019-09-10] MEDS: INSULIN GLARGINE 100 UNIT/ML 3ML PEN 10 UNIT SUBCUT (20:52)
[2019-09-11] VITALS (17 sets, daily range): BP systolic 150–197; BP diastolic 74–94; PULSE 85–102; RESP 16–28; TEMP 36.9–38.1; O2SAT 89–97
[2019-09-11] MEDS: INSULIN ASPART 100 UNIT/ML INSULN PEN SUBCUT ×3 (00:33→13:08)
[2019-09-11] MEDS: SODIUM CHLORIDE 0.9% 1,000 ML 150 ML IV ×3 (00:55→15:29)
[2019-09-11] MEDS: HYDROMORPHONE 1 MG INJ IV ×2 (01:01→11:34)
[2019-09-11] MEDS: PIPERACILLIN-TAZO 3.375 GM/50 ML FROZ.PIGGY IV ×3 (03:46→19:04)
[2019-09-11 05:13] LABS: Add Manual Diff / Slide Review NO; Basophils Absolute Auto 100 /uL (0-100); Basophils Percent Auto 0.3 % (0-2); Eosinophils Absolute Auto 0 /uL (0-450); Hemoglobin 14.3 g/dL (13.5-17.5); Lymphocytes Absolute Auto 1600 /uL (1100-4500); Lymphocytes Percent Auto 7.8 % (25-40); Mean Corpuscular HGB Conc 34.2 % (30-36); Mean Corpuscular Hemoglobin 30.4 PG (26-34); Mean Corpuscular Volume 88.9 fL (80-100); Monocytes Absolute Auto 2000 /uL (0-900); Monocytes Percent Auto 9.3 % (3-14); Neutrophils Absolute Auto 17300 /uL (1500-7000); Neutrophils Percent Auto 82.6 % (50-75); Platelet Count 169 X10^3/uL (150-400); Red Blood Cell Count 4.72 X10^6/uL (4.5-5.9); Red Cell Distribution Width 14.7 % (11.6-14.8)
[2019-09-11 05:21] LABS: BUN Creatinine Ratio 28.9 (6-22); Blood Urea Nitrogen 26 mg/dL (9-20); Calcium 8.2 mg/dL (8.4-10.2); Carbon Dioxide 25 mmol/L (22-32); Chloride 109 mmol/L (98-107); Estimated Glomerular Filt Rate > 60.0 mL/min (>60); Glucose 291 mg/dL (80-110); HEMOLYSIS < 15 (0-50); Magnesium 2.3 mg/dL (1.6-2.3); Phosphorous 2.3 mg/dL (2.3-3.7); Potassium 4.4 mmol/L (3.4-5.1); Sodium 141 mmol/L (137-145)
--- NOTE | 2019-09-11 06:33 | PC.NURSE ---
Pt's. sats on 5.5 L NC remained in the high 80's so RT called and 02 was changed to high flow at 7L NC with sats of 92-94%. Lung sounds with fine crackles to the right base, instructed pt. to take deep breaths, IS use and pt. able to pull up to 100 ml. BT's distant hypoactive and no flatus. NGT LIS with brownish liquid output. Midline abd drsg. D&I, abdominal binder remains on. Williamson with 600 ml. shelli color urine. Pt. dangled at bedside around 0400 am. Medicated once with Hydromorphone 1 mg IV at 0101 for 4/10 pain and has denied pain since then. B/P labile with SBP in the 180's taken by METAL CONTROL COORDINATOR and down to the 150's with recheck by this RN. Cont. to monitor and encourage IS use eboni. with increasing WBC.
[2019-09-11 09:07] LABS: Procalcitonin 3.68 ng/mL (<0.5)
--- NOTE | 2019-09-11 09:57 | PM.PN.1 ---
Subjective Subjective Date Patient Seen: 09/11/19 Time Patient Seen: 20:23 Interval history: Denies nausea. Denies flatus. Denies abdominal pain. Exam Vital Signs (past 8 hours): - 09/11/19 02:10 09/11/19 03:17 09/11/19 03:35 Temperature 98.4 F Pulse Rate 101 H Respiratory Rate 16 Blood Pressure 156/91 H 156/91 H 189/92 H Pulse Oximetry 93 09/11/19 04:00 09/11/19 08:00 Temperature 98.4 F Pulse Rate 98 H Respiratory Rate 24 Blood Pressure 150/74 H 169/90 H Pulse Oximetry 91 Fraction of Inspired Oxygen 40 Oxygen Delivery Method High Flow Nasal Cannula Oxygen Flow Rate 4 Narrative Exam Narrative: GENERAL: Alert, comfortable, conversant HENT: NG tube in place, no bleeding or swelling around the tube; NG tube is sumping appropriately CARDIOVASCULAR: Mild tachycardia. No pedal edema. RESPIRATORY: Non-tachypneic, breathing comfortably on NC 5L GASTROINTESTINAL: Abdomen soft and moderately distended, incision c/d/i; no drainage or erythema GENITALURINARY: No flank tenderness. MUSCULOSKELETAL: Equal tone and mass bilaterally. SKIN: Warm, dry, soft, appropriate color for ethnicity. No other lesions, rashes, or wounds. NEURO: Alert and Oriented X 3. No gross sensory deficits, or cognitive issues. PSYCH: Appropriate affect and mood. Objective Imaging CT scan - abdomen: My impression: CT chest/abd/pelvis: no abscess, no free fluid; free air present c/w recent surgery; dense consolidation of lung bases Labs Result Diagrams: 09/11/19 04:47 09/11/19 04:47 Labs: Laboratory Results - last 24 hr 09/10/19 09/10/19 09/10/19 02:28 08:25 08:25 WBC RBC Hgb Hct MCV MCH MCHC RDW Plt Count Neut % (Auto) Lymph % (Auto) [place] % (Auto) Eos % (Auto) Baso % (Auto) Neut # (Auto) Lymph # (Auto) [place] # (Auto) Eos # (Auto) Baso # (Auto) Sodium 138 Potassium 5.0 Chloride 107 Carbon Dioxide 22 BUN 33 H Creatinine 1.10 Estimated GFR > 60.0 BUN/Creatinine Ratio 30.0 H Glucose 355 H Hemoglobin A1c 8.5 H Calcium 7.8 L Phosphorus 4.1 H Magnesium 1.6 Procalcitonin Nasal Screen MRSA (PCR) Negative for mrsa 09/11/19 09/11/19 09/11/19 04:47 04:47 04:47 WBC 21.0 H RBC 4.72 Hgb 14.3 Hct 42.0 MCV 88.9 MCH 30.4 MCHC 34.2 RDW 14.7 Plt Count 169 Neut % (Auto) 82.6 H Lymph % (Auto) 7.8 L [place] % (Auto) 9.3 Eos % (Auto) 0.0 L Baso % (Auto) 0.3 Neut # (Auto) 40419 H Lymph # (Auto) 1600 [place] # (Auto) 2000 H Eos # (Auto) 0 Baso # (Auto) 100 Sodium 141 Potassium 4.4 Chloride 109 H Carbon Dioxide 25 BUN 26 H Creatinine 0.90 Estimated GFR > 60.0 BUN/Creatinine Ratio 28.9 H Glucose 291 H Hemoglobin A1c Calcium 8.2 L Phosphorus 2.3 D Magnesium 2.3 Procalcitonin 3.68 H Nasal Screen MRSA (PCR) Assessment & Plan Assessment & Plan narrative: 74 yo man POD#2 s/p SBR for infarcted bowel. WBC persistently low 20's, sats low 90's on 5+L NC. CT'ed to find source of WBC. Nothing significant other than lung consolidation/dense atelectasis. Check procalcitonin Remove Williamson Check UA Ambulate as tolerated NG tube to low intermittent suction, plan to remove when patient passes gas Continue IV Zosyn for now Repeat CBC tomorrow morning Incentive spirometer Quality VTE Deep Vein Thrombosis/Pulmonary Embolism Present on Admission: No
[2019-09-11] MEDS: LOSARTAN 50 MG TABLET PO (10:02)
[2019-09-11] MEDS: ENOXAPARIN 40 MG/0.4 ML SYRINGE SUBCUT (10:03)
[2019-09-11] MEDS: INSULIN GLARGINE 100 UNIT/ML 3ML PEN 15 UNIT SUBCUT (10:03)
[2019-09-11 13:17] LABS: Bacteria Urine None Seen
[2019-09-11 13:27] LABS: Appearance Urine UA CLEAR; Bilirubin Urine UA NEGATIVE (NEGATIVE); Color Urine UA YELLOW; Glucose Urine UA 2+ g/dL (Negative); Ketones Urine UA 1+ (NEGATIVE); Leukocyte Esterase Urine UA NEGATIVE (NEGATIVE); Nitrite Urine UA NEGATIVE (Negative); Occult Blood Urine UA 3+ (Negative); Protein Urine UA 1+ (Negative); Urobilinogen Urine UA 0.2 E.U./dL (0.2)
[2019-09-11 13:37] LABS: RBC Urine 1-5/HPF (0-5/HPF); Squamous Epithelial Cell Urine None Seen (0-5/HPF); WBC Urine 0-1/HPF (0-5/HPF)
[2019-09-11 13:38] LABS: Culture Indicated Urine Cult Not Indicated; Uric Acid Crystals Urine Moderate
--- NOTE | 2019-09-11 13:50 | PC.NURSE ---
Addendum entered by Nanda Narayan R.N. 09/11/19 15:20: add Williamson out @ 1330, no void by 1500, urinal at bedside. Dr Fisher called for update and notified of flatus x1, ok to pull NG tube and allow water and advance to clear liq for dinner if tolerated well. Addendum entered by Nanda Narayan R.N. 09/11/19 14:53: Pt up to BSC, small amount of gas passed. No stooling. BT hypoactive, but are returning. Continue IV therapy, q6 CBG, BP improved with pain medication. No PRN Lobatolol given this shift. Drinking copious amounts of ice chips and h20 this shift. Original Note: AM Shift Pt is A/o x4, reports pain is well managed at this time with IV Dilaudid PRN. HFNC, reduced 02 to 4L with Pt sitting up in chair. Lungs dim with fine crackles. Enc I.S. use Pt reports fatigue today, overwhelmed at times by staff interventions. Reassured. HTN, lobatalol order PRN, started long acting insulin to help with blood sugars.
[2019-09-11] MEDS: PANTOPRAZOLE 40 MG VIAL 20 MG IV ×2 (15:29→21:31)
[2019-09-11] MEDS: INSULIN REGULAR 100 UNIT/ML 3 ML VIAL SUBCUT ×3 (15:32→21:26)
--- NOTE | 2019-09-11 15:39 | CM.DANOTE ---
Discharge Planning/Care Management DCP: assessment: case received yesterday, EMR reviewed and discussed in Team Rounds both yesterday and today. Pt is a 74 year old male who admitted afternoon of 09/09 to care of [facility] team. Dr. Bauman took him to surgery that evening: Exploratory Laparotomy, small bowel resection and cholecystectomy. Consult was given to hospitalist team to follow pt for diabetic management and he was seen in consult on 09/10. Admission status: INPT: per [facility] RN team. PCP: confirmed by pt as Dr. Hurtado. Met now with pt after noting that he appeared comfortable enough for conversation. Introduced self and role. Pt was found lying in bed, NGT in place but clamped as part of Dr. Fisher's POC for today. He confirms that he has been allowed water and, if all goes well, he will have the NGT out later this evening and may go to clear liquids. Pt confirms he is functionally independent in community. Lives in [place] with his Germania Thomas. He anticipates home when he is recovered enough to leave the hospital. P: will check in again tomorrow. Pt has ambulate as tolerated orders now. Expect this will be more in place once NG is removed..will discuss in Rounds tomorrow. Likely home when stable for same. DCP team will be following. Advanced directive, confirm from FAMILY Start: 09/09/19 20:32 Freq: Q24H Status: Active Protocol: Document 09/09/19 21:05 (Rec: 09/09/19 21:06 [id number]) Advance Directive, confirm on record Time 21:06 Person contacted Copy received No CM Discharge Assessment Start: 09/11/19 15:38 Freq: Status: Active Protocol: Document 09/11/19 15:38 ITV (Rec: 09/11/19 15:39 ITV [id number]) Discharge Planning Assessment Advance Directives? No History Provided By Patient,Medical Record Prior Living Arrangements House Household Members spouse Type of transportation used prior to Drives own vehicle admit Independent with ADL's Yes Is patient alert and oriented? Yes Review Status In Process
--- NOTE | 2019-09-11 16:00 | P.PN_ITS ---
Subjective Subjective Date Patient Seen: 09/11/19 Interval history: Guanakito Chaidez is a 74-year-old male with a past medical history significant for hypertension, hyperlipidemia, diabetes mellitus type 2, insulin using, who presented to the ED with sudden onset of severe abdominal pain for 12 hours prior to arrival. The patient is resting in bed comfortably. He reports he ?feels pretty good right now.? He endorses mild abdominal pain due to surgical site. He denies passing flatus. He has NG tube in place draining by green bile acid. Per nursing he has been taking sips of water but is otherwise NPO. He has no complaints and denies headache, sore throat, shortness of breath, chest pain, nausea, vomiting, fever, chills, dysuria, diarrhea or constipation. He is voiding without difficulty. He has not yet had a bowel movement postoperatively. He up ambulating independently without assistance. Exam Vital Signs (past 8 hours): - 09/11/19 09:19 09/11/19 11:46 09/11/19 12:21 Temperature 99.2 F Pulse Rate 102 H 100 H Respiratory Rate 22 28 H Blood Pressure 195/94 H Pulse Oximetry 93 92 93 Fraction of Inspired Oxygen 40 Oxygen Delivery Method High Flow Nasal Cannula Oxygen Flow Rate 6 Narrative Exam Narrative: General: Older gentleman lying in bed and in no no acute distress, well- developed, well-nourished, appears flushed but also in context of rosacea, appropriately interactive. HEENT: Normocephalic, atraumatic. External ears without defect. Pupils equal, round, and reactive to light. Rosacea present on cheeks. Anicteric sclerae, moist conjunctivae, and no lid lag. Nasogastric tube in place with green bile output. Neck: Supple with full range of motion. No jugular venous distension. No lymphadenopathy or thyromegaly. Cardiovascular: Regular rate and rhythm without murmurs, rubs, or gallops appreciated Pulmonary: Clear to auscultation bilaterally without crackles, wheezes, or rh onchi. Normal respiratory effort with no use of accessory muscles. Abdomen: Abdominal binder in place, firm abdomen, hypoactive bowel sounds, tenderness to palpation due to surgical site, moderate distention. Extremities: No clubbing, cyanosis, or edema. Skin: Normal temperature, turgor, and texture; no rash, ulcers, or subcutaneous nodules appreciated. Neurological: Cranial nerves grossly intact. Psychiatric: Normal mood and affect. Alert and oriented to person, place, and time. Objective Labs Result Diagrams: 09/11/19 04:47 09/11/19 04:47 Labs: Laboratory Results - last 24 hr 09/11/19 09/11/19 09/11/19 04:47 04:47 04:47 WBC 21.0 H RBC 4.72 Hgb 14.3 Hct 42.0 MCV 88.9 MCH 30.4 MCHC 34.2 RDW 14.7 Plt Count 169 Neut % (Auto) 82.6 H Lymph % (Auto) 7.8 L [place] % (Auto) 9.3 Eos % (Auto) 0.0 L Baso % (Auto) 0.3 Neut # (Auto) 68540 H Lymph # (Auto) 1600 [place] # (Auto) 2000 H Eos # (Auto) 0 Baso # (Auto) 100 Sodium 141 Potassium 4.4 Chloride 109 H Carbon Dioxide 25 BUN 26 H Creatinine 0.90 Estimated GFR > 60.0 BUN/Creatinine Ratio 28.9 H Glucose 291 H Calcium 8.2 L Phosphorus 2.3 D Magnesium 2.3 Procalcitonin 3.68 H Urine Color Urine Appearance Urine pH Ur Specific [place] Urine Protein Urine Glucose (UA) Urine Ketones Urine Occult Blood Urine Nitrate Urine Bilirubin Urine Urobilinogen Ur Leukocyte Esterase Urine RBC Urine WBC Ur Squamous Epith Cells Uric Acid Crystals Urine Bacteria Ur Culture Indicated? 09/11/19 13:16 WBC RBC Hgb Hct MCV MCH MCHC RDW Plt Count Neut % (Auto) Lymph % (Auto) [place] % (Auto) Eos % (Auto) Baso % (Auto) Neut # (Auto) Lymph # (Auto) [place] # (Auto) Eos # (Auto) Baso # (Auto) Sodium Potassium Chloride Carbon Dioxide BUN Creatinine Estimated GFR BUN/Creatinine Ratio Glucose Calcium Phosphorus Magnesium Procalcitonin Urine Color Yellow Urine Appearance Clear Urine pH 5.0 Ur Specific [place] 1.020 Urine Protein 1+ H Urine Glucose (UA) 2+ H Urine Ketones 1+ H Urine Occult Blood 3+ H Urine Nitrate Negative Urine Bilirubin Negative Urine Urobilinogen 0.2 Ur Leukocyte Esterase Negative Urine RBC 1-5/hpf Urine WBC 0-1/hpf Ur Squamous Epith Cells None seen Uric Acid Crystals Moderate Urine Bacteria None seen Ur Culture Indicated? Cult not indicated Assessment & Plan Assessment & Plan narrative: Guanakito Chaidez is a 74-year-old male with a past medical history significant for hypertension, hyperlipidemia, diabetes mellitus type 2, insulin using, who presented to the ED with sudden onset of severe abdominal pain for 12 hours prior to arrival. 1. Acute small-bowel obstruction, status post small bowel resection. Active. -Patient presented with severe abdominal pain for 12 hours with associated nausea and vomiting. -CT abdomen and pelvis demonstrated segmental dilatation of the small bowel in the right upper quadrant with air-fluid levels and adjacent transition points suggestive of an early high-grade closed-loop small bowel obstruction and cholelithiasis with mild gallbladder wall thickening and developing cholecystitis cannot be excluded. -Initial WBC 12.1. WBC increased to 20.5 postoperatively and continues to be persistently elevated at 21.0. Initial procalcitonin < 0.05 then elevated to 5.05 now trending down to 3.68. Continue monitoring WBC and procalcitonin daily. -POD #2 status post exploratory laparotomy with resection of 16 in of infarcted small bowel. -Continue postoperative management per surgical team including: NPO status, NG tube to suction, IV fluids with normal saline at 150 mL/hr, and pain control with hydromorphone 1 mg every 2 hours as needed for moderate to severe pain. Patient reports pain is manageable with current medication regimen. He continues to have hypoactive bowel tones and denies flatus. -Continue Zosyn 3.375 g IV every 8 hours and added Flagyl 500 mg IV every 8 hours for double gram negative and anaerobic coverage as patient is is showing signs of infection with WBC persistently elevated, febrile, and tachycardic with likely intra-abdominal source. 2. Acute cholelithiasis without cholecystitis, status post cholecystectomy, present on admission. Active. -On abdominal ultrasound 1.4 cm gallstone lodged in the neck of the gallbladder. Patient reports intermittent reports of biliary colic. -CT abdomen and pelvis demonstrated segmental dilatation of the small bowel in the right upper quadrant with air-fluid levels and adjacent transition points suggestive of an early high-grade closed-loop small bowel obstruction and cholelithiasis with mild gallbladder wall thickening and developing jose roberto cystitis cannot be excluded. -POD #1-status post cholecystectomy. -Postoperative care per the surgical team. 3. Diabetes mellitus type 2, insulin using, present on admission. Active. -Hemoglobin A1c 8.5% indicative of fair glycemic control. Patient has longstanding diabetes mellitus type 2 without complications and diabetic regimen includes Trulicity, Levemir and nutritional NovoLog. -Continue blood glucose checks every 6 hours while NPO and regular insulin 5 units every 6 hours and high-dose correctional scale every 6 hours. -Continue Lantus increased from 15 units to 20 units twice daily. 4. Hypertension, chronic, present on admission. Stable. -Patient has been periodically hypertensive with SBP 160s to 190s. -Held home losartan 50 mg daily and may resume when able to take in PO intake per surgical team. -Continue pain management and ordered labetalol 10 mg IV every 4 hours as needed for SBP > 180 mmHg sustained for 15 minutes and HR > 60. 5. Hyperlipidemia, chronic, present on admission. Stable. -Patient is NPO per surgical team. Held home rosuvastatin 40 mg daily and may resume when able to take in PO intake per surgical team. Thank you for this most interesting consult. Medicine team will continue to follow along for glycemic management and any additional needs. Quality VTE Deep Vein Thrombosis/Pulmonary Embolism Present on Admission: No
--- NOTE | 2019-09-11 16:42 | PC.NURSE ---
Addendum entered by Helga Wilder R.N. 09/11/19 19:42: 1930- Stood patient at bedside to try and void. Patient was not able to produce much urine less than 15cc. Will wait and if unable to void we will straight cath him. Lungs assessed again. Bases remain dim. No crackles appreciated. Patient given his Incentive Spirometer to use. Patient is using this correctly able to get to 1500. Abdominal binder is on and patient denies pain at this time. SCD bilateral on per order. Addendum entered by Helga Wilder R.N. 09/11/19 19:16: 1800- Patient taken to [facility] Imaging for urgent CT scan. Patient tolerated the scan well. 02 titrated to 6l cannula. Returned from CT at 1830. Will monitor. Addendum entered by Helga Wilder R.N. 09/11/19 17:36: 1730-Patient output to NGT noted to be around 400cc bile color. Patient advised he is now npo until he is passing gas. Patient has not voided post hale remove. Will monitor. Original Note: 1630- Patient asked if he has been passing gas and he states he has not. Bowel tones are very hypoactive. Plan to keep patient on sips and chips and not advance diet. After discussion with Dr. Sandoval we will leave NGT to LIS until passing gas. Will monitor.
[2019-09-11 17:06] LABS: Procalcitonin 5.05 ng/mL (<0.5)
--- NOTE | 2019-09-11 17:41 | DI.CT.S_ITS ---
PROCEDURE: CT ABDOMEN PELVIS W CON INDICATIONS: rule out abscess, anastomotic leak TECHNIQUE: After the administration of intravenous contrast, 5 mm thick sections acquired from the diaphragm to the symphysis. 5 mm coronal and sagittal reformats were acquired. For radiation dose reduction, the following was used: automated exposure control, adjustment of mA and/or kV according to patient size. COMPARISON: [facility], CT, CT ABDOMEN PELVIS W CON, 09/09/2019, 12:13. FINDINGS: Image quality: Excellent. ABDOMEN: Lung bases: Dense consolidation and atelectasis, right lung base. Minimal atelectasis, left lung base. Heart size is normal. Solid organs: Liver is normal in size and enhancement. Gallbladder is surgically absent. Biliary system is non dilated. Pancreas enhances normally. Spleen is normal in size and enhancement. No adrenal nodules. Kidneys demonstrate normal size and enhancement, without hydronephrosis. Peritoneum and bowel: NG tube coils in the stomach. Bowel loops demonstrate normal wall thickness and caliber. No free fluid or air. Small amount of free air from recent surgery. Clips consistent with partial small bowel resection. No free fluid or abscess cavity. Nodes and vessels: No retroperitoneal or mesenteric adenopathy by size criteria. Abdominal aortic aneurysm measuring 3.4 x 3.7 cm. Miscellaneous: Small local hernia containing fat. PELVIS: Genitourinary: Bladder wall thickness is normal. Miscellaneous: No inguinal hernias or adenopathy. Bones: No suspicious bony lesions. No vertebral body compression fractures. Bilateral L5 pars defects with mild anterolisthesis of L5 on S1 and moderate to severe bilateral foraminal narrowing at that level. IMPRESSION: 1. Interval partial small bowel resection. Minimal postoperative free air. No free fluid or abscess cavity. 2. Dense right basilar atelectasis and consolidation. Minimal left basilar atelectasis. 3. Abdominal aortic aneurysm measuring 3.4 x 3.7 cm. 5. Bilateral L5 pars defects, anterolisthesis of L5 on S1, moderate to severe bilateral foraminal narrowing at that level. Dictated by: Palomo Sainz M.D. on 09/11/2019 at 19:03 Approved by: Palomo Sainz M.D. on 09/11/2019 at 19:08
--- NOTE | 2019-09-11 17:45 | DI.CT.S_ITS ---
PROCEDURE: CT CHEST WO CON INDICATIONS: rule out pneumonia, desats, fevers, wbc TECHNIQUE: Noncontrast 5 mm thick sections acquired from the pulmonary apices to the posterior costophrenic angles. 1 mm lung window, 5 mm thick coronal and sagittal and 7 mm axial MIP reformats were then acquired. For radiation dose reduction, the following was used: automated exposure control, adjustment of mA and/or kV according to patient size. COMPARISON: None. FINDINGS: Image quality: Excellent. Lungs and pleura: There is consolidation and atelectasis in the right lung base. Minimal atelectasis in the left lung base.. No pleural effusions or pneumothorax. Central and peripheral airways are patent and normal in caliber. Mediastinum: Heart size is normal. No pericardial effusion. Shotty mediastinal adenopathy. Thoracic aorta and central pulmonary arteries are normal in size. Esophagus is normal in caliber. No hiatal hernia. Bones and chest wall: No suspicious bony lesions. No vertebral body compression fractures. No axillary or supraclavicular adenopathy by size criteria. Thyroid gland is unremarkable. Abdomen: Minimal free air, likely secondary to recent surgery IMPRESSION: 1. Minimal free air, likely secondary to recent surgery 2. Dense consolidation and atelectasis in the right lung base. Minimal atelectasis in the left lung base. 3. Advanced coronary artery calcifications. Dictated by: Palomo Sainz M.D. on 09/11/2019 at 18:56 Approved by: Palomo Sainz M.D. on 09/11/2019 at 19:01
[2019-09-11 18:27] LABS: Procalcitonin < 0.05 ng/mL (<0.5)
[2019-09-11 18:30] LABS: Lactate (Lactic Acid) 1.7 mmol/L (0.7-2.1)
[2019-09-11] MEDS: metroNIDAZOLE 500 MG/100 ML PIGGYBACK 100 MG IV (18:59)
[2019-09-11] MEDS: LABETALOL 20 MG/4 ML SYRINGE 10 MG IV (20:33)
[2019-09-11] MEDS: SODIUM CHLORIDE 0.45% 1,000 ML 150 ML IV (20:35)
[2019-09-11] MEDS: TAMSULOSIN 0.4 MG CAPSULE PO (21:23)
[2019-09-11] MEDS: INSULIN GLARGINE 100 UNIT/ML 3ML PEN 20 UNIT SUBCUT (21:30)
[2019-09-12] VITALS (14 sets, daily range): BP systolic 143–186; BP diastolic 73–98; PULSE 72–92; RESP 14–23; TEMP 36.7–38; O2SAT 88–94
--- NOTE | 2019-09-12 00:14 | PC.NURSE ---
Noted pt. has a new Stage 2 pressure sore on the right side of his gluteal fold, pictures taken and pt. turned to his left side
[2019-09-12] MEDS: PIPERACILLIN-TAZO 3.375 GM/50 ML FROZ.PIGGY IV ×4 (00:38→19:08)
--- NOTE | 2019-09-12 00:49 | PC.NURSE ---
Applied barrier cream to pts. sacral area and felt hard lumpy areas on those ecchymotic areas. Will reposition side to side and bridge with pillows when on supine.
[2019-09-12] MEDS: metroNIDAZOLE 500 MG/100 ML PIGGYBACK 100 MG IV ×3 (01:54→18:04)
--- NOTE | 2019-09-12 02:12 | PC.NURSE ---
Bridge with pillows.
[2019-09-12] MEDS: INSULIN REGULAR 100 UNIT/ML 3 ML VIAL SUBCUT ×7 (04:21→20:55)
[2019-09-12 04:49] LABS: Add Manual Diff / Slide Review NO; Basophils Absolute Auto 100 /uL (0-100); Basophils Percent Auto 0.5 % (0-2); Eosinophils Absolute Auto 100 /uL (0-450); Eosinophils Percent Auto 0.6 % (2-4); Hematocrit 39.9 % (41-53); Hemoglobin 13.6 g/dL (13.5-17.5); Lymphocytes Absolute Auto 1800 /uL (1100-4500); Lymphocytes Percent Auto 10.1 % (25-40); Mean Corpuscular Hemoglobin 30.1 PG (26-34); Mean Corpuscular Volume 88.6 fL (80-100); Monocytes Absolute Auto 1400 /uL (0-900); Monocytes Percent Auto 7.8 % (3-14); Neutrophils Absolute Auto 14600 /uL (1500-7000); Platelet Count 164 X10^3/uL (150-400); Red Cell Distribution Width 14.2 % (11.6-14.8); White Blood Cell Count 18.1 X10^3/uL (4.5-11.0)
[2019-09-12 04:56] LABS: Magnesium 2.3 mg/dL (1.6-2.3)
[2019-09-12 04:57] LABS: Alanine Aminotransferase 47 IU/L (<50); Albumin 3.2 g/dL (3.5-5.0); Albumin Globulin Ratio 1.1 (1.0-2.8); Alkaline Phosphatase 50 U/L (38-126); Aspartate Aminotransferase 87 IU/L (17-59); BUN Creatinine Ratio 28.6 (6-22); Bilirubin Total 1.9 mg/dL (0.2-1.3); Blood Urea Nitrogen 20 mg/dL (9-20); Calcium 8.4 mg/dL (8.4-10.2); Carbon Dioxide 29 mmol/L (22-32); Chloride 108 mmol/L (98-107); Estimated Glomerular Filt Rate > 60.0 mL/min (>60); Glucose 216 mg/dL (80-110); HEMOLYSIS 16 (0-50); Potassium 3.8 mmol/L (3.4-5.1); Sodium 142 mmol/L (137-145); Total Protein 6.2 g/dL (6.3-8.2)
[2019-09-12 05:12] LABS: Procalcitonin 2.05 ng/mL (<0.5)
[2019-09-12] MEDS: SODIUM CHLORIDE 0.45% 1,000 ML 125 ML IV ×2 (05:29→16:13)
--- NOTE | 2019-09-12 06:26 | PC.NURSE ---
Talk with darline Gonzalez hospitalist regarding pt. only voiding approximately 20-25 ml of urine after bladder scan done which showed 340 ml. Pt. is not complaining of discomfort and asked for hospitalist input on whether I should straight cath pt. or give him more time. There is an order to straight cath pt. if unable to void >8 hrs or if he is in discomfort which pt. states he is not. Decision is to give pt. a little bit more time, he should have Flomax started regularly to help with pts. urine retention.
--- NOTE | 2019-09-12 07:44 | P.PN_ITS ---
Subjective Subjective Date Patient Seen: 09/12/19 Interval history: Guanakito Chaidez is a 74-year-old male with a past medical history significant for hypertension, hyperlipidemia, diabetes mellitus type 2, insulin using, who presented to the ED with sudden onset of severe abdominal pain for 12 hours prior to arrival. The patient is resting in bedside chair comfortably. He reports mild pain at his abdominal incision that he rates a +2/10. He endorses productive cough of green sputum. He has not yet passed flatus or had a BM. His bowel sounds are becoming more active. Encourage the patient to be up and ambulatory as much as tolerated. He continues to have NG tube in place which is draining green bile. Has no other complaints and denies headache, shortness of breath, chest pain, nausea, vomiting, fever, chills, dysuria, diarrhea or constipation. He had difficulty urinating after Williamson catheter removal for which Flomax was started and urine output/voiding has improved. He has not yet had a bowel movement postoperatively. He up ambulating independently without assistance. Exam Vital Signs (past 8 hours): - 09/12/19 00:52 09/12/19 04:00 Temperature 98.0 F Pulse Rate 90 92 H Respiratory Rate 19 14 Blood Pressure 173/81 H 179/86 H Pulse Oximetry 91 93 Fraction of Inspired Oxygen 40 Oxygen Delivery Method High Flow Nasal Cannula Oxygen Flow Rate 6 Narrative Exam Narrative: General: Older gentleman sitting in bedside chair and in no acute distress, well-developed, well-nourished, appears flushed but also in context of rosacea, appropriately interactive. HEENT: Normocephalic, atraumatic. External ears without defect. Pupils equal, round, and reactive to light. Rosacea present on cheeks. Anicteric sclerae, moist conjunctivae, and no lid lag. Nasogastric tube in place with green bile output. Neck: Supple with full range of motion. No jugular venous distension. No lymphadenopathy or thyromegaly. Cardiovascular: Regular rate and rhythm without murmurs, rubs, or gallops appreciated. Pulmonary: Clear to auscultation bilaterally throughout all lung wylie except for rhonchi at right base. No wheezes or crackles. Normal respiratory effort with no use of accessory muscles. Abdomen: Abdominal binder in place, firm abdomen, hypoactive bowel sounds but improved, tenderness to palpation due to surgical site, moderate distention. Extremities: No clubbing, cyanosis, or edema. Skin: Normal temperature, turgor, and texture; no rash, ulcers, or subcutaneous nodules appreciated. Neurological: Cranial nerves grossly intact. Psychiatric: Mildly depressed mood and normal affect. Alert and oriented to person, place, and time. Objective Labs Result Diagrams: 09/12/19 04:32 09/12/19 04:32 Labs: Laboratory Results - last 24 hr 09/09/19 09/10/19 09/11/19 11:27 08:25 04:47 WBC RBC Hgb Hct MCV MCH MCHC RDW Plt Count Neut % (Auto) Lymph % (Auto) Gilchrist % (Auto) Eos % (Auto) Baso % (Auto) Neut # (Auto) Lymph # (Auto) Gilchrist # (Auto) Eos # (Auto) Baso # (Auto) Sodium Potassium Chloride Carbon Dioxide BUN Creatinine Estimated GFR BUN/Creatinine Ratio Glucose Lactate Calcium Magnesium Total Bilirubin AST ALT Alkaline Phosphatase Total Protein Albumin Globulin Albumin/Globulin Ratio Procalcitonin < 0.05 5.05 H 3.68 H Urine Color Urine Appearance Urine pH Ur Specific [place] Urine Protein Urine Glucose (UA) Urine Ketones Urine Occult Blood Urine Nitrate Urine Bilirubin Urine Urobilinogen Ur Leukocyte Esterase Urine RBC Urine WBC Ur Squamous Epith Cells Uric Acid Crystals Urine Bacteria Ur Culture Indicated? 09/11/19 09/11/19 09/12/19 13:16 18:05 04:32 WBC 18.1 H RBC 4.50 Hgb 13.6 Hct 39.9 L MCV 88.6 MCH 30.1 MCHC 34.0 RDW 14.2 Plt Count 164 Neut % (Auto) 81.0 H Lymph % (Auto) 10.1 L Gilchrist % (Auto) 7.8 Eos % (Auto) 0.6 L Baso % (Auto) 0.5 Neut # (Auto) 10752 H Lymph # (Auto) 1800 Gilchrist # (Auto) 1400 H Eos # (Auto) 100 Baso # (Auto) 100 Sodium Potassium Chloride Carbon Dioxide BUN Creatinine Estimated GFR BUN/Creatinine Ratio Glucose Lactate 1.7 Calcium Magnesium Total Bilirubin AST ALT Alkaline Phosphatase Total Protein Albumin Globulin Albumin/Globulin Ratio Procalcitonin Urine Color Yellow Urine Appearance Clear Urine pH 5.0 Ur Specific [place] 1.020 Urine Protein 1+ H Urine Glucose (UA) 2+ H Urine Ketones 1+ H Urine Occult Blood 3+ H Urine Nitrate Negative Urine Bilirubin Negative Urine Urobilinogen 0.2 Ur Leukocyte Esterase Negative Urine RBC 1-5/hpf Urine WBC 0-1/hpf Ur Squamous Epith Cells None seen Uric Acid Crystals Moderate Urine Bacteria None seen Ur Culture Indicated? Cult not indicated 09/12/19 09/12/19 09/12/19 04:32 04:32 04:32 WBC RBC Hgb Hct MCV MCH MCHC RDW Plt Count Neut % (Auto) Lymph % (Auto) Gilchrist % (Auto) Eos % (Auto) Baso % (Auto) Neut # (Auto) Lymph # (Auto) Gilchrist # (Auto) Eos # (Auto) Baso # (Auto) Sodium 142 Potassium 3.8 Chloride 108 H Carbon Dioxide 29 BUN 20 Creatinine 0.70 Estimated GFR > 60.0 BUN/Creatinine Ratio 28.6 H Glucose 216 H Lactate Calcium 8.4 Magnesium 2.3 Total Bilirubin 1.9 H AST 87 H ALT 47 Alkaline Phosphatase 50 Total Protein 6.2 L Albumin 3.2 L Globulin 3.0 Albumin/Globulin Ratio 1.1 Procalcitonin 2.05 H Urine Color Urine Appearance Urine pH Ur Specific [place] Urine Protein Urine Glucose (UA) Urine Ketones Urine Occult Blood Urine Nitrate Urine Bilirubin Urine Urobilinogen Ur Leukocyte Esterase Urine RBC Urine WBC Ur Squamous Epith Cells Uric Acid Crystals Urine Bacteria Ur Culture Indicated? Assessment & Plan Assessment & Plan narrative: Guanakito Chaidez is a 74-year-old male with a past medical history significant for hypertension, hyperlipidemia, diabetes mellitus type 2, insulin using, who presented to the ED with sudden onset of severe abdominal pain for 12 hours prior to arrival. 1. Acute small-bowel obstruction with infarcted bowel, status post small bowel resection, present on admission. Active. -Patient presented with severe abdominal pain for 12 hours with associated nausea and vomiting. -CT abdomen and pelvis demonstrated segmental dilatation of the small bowel in the right upper quadrant with air-fluid levels and adjacent transition points suggestive of an early high-grade closed-loop small bowel obstruction and cholelithiasis with mild gallbladder wall thickening and developing cholecystitis cannot be excluded. -Initial WBC 12.1. WBC increased to 20.5 postoperatively and continues to be persistently elevated at 21.0. Initial procalcitonin < 0.05 then peaked at 5.05 now trending down at 2.05. Of note, procalcitonin should decreased by approximately half daily if on correct antibiotic regimen. Continue monitoring WBC and procalcitonin daily. -Continue postoperative management per surgical team including: NPO except medications, NG tube to suction, IV fluids with 0.45% normal saline at 125 mL/hr, and pain control with hydromorphone 1 mg every 2 hours as needed for moderate to severe pain. Patient reports pain is manageable with current medication regimen. He continues to have hypoactive bowel tones and denies flatus. -Continue Zosyn 3.375 g IV every 8 hours and Flagyl 500 mg IV every 8 hours for double gram negative and anaerobic coverage. 2. Acute cholelithiasis without cholecystitis, status post cholecystectomy, present on admission. Active. -On abdominal ultrasound 1.4 cm gallstone lodged in the neck of the gallbladder. Patient reports intermittent reports of biliary colic. -CT abdomen and pelvis demonstrated segmental dilatation of the small bowel in the right upper quadrant with air-fluid levels and adjacent transition points suggestive of an early high-grade closed-loop small bowel obstruction and cholelithiasis with mild gallbladder wall thickening and developing cholecystitis cannot be excluded. -Postoperative care per the surgical team. 3. Acute postoperative right lower lobe pneumonia, not present on admission. Active. -CT chest without contrast demonstrated dense consolidation of right lung base with atelectasis. -Continue Zosyn 3.375 g IV every 8 hours and Flagyl 500 mg IV every 8 hours as above. -Continue respiratory therapy evaluation and treatment. Continue supplemental oxygen as necessary to maintain oxygen saturation 88-92% and titrate off as tolerated. Continue albuterol nebs every 4 hours as needed for shortness of breath or wheezing. Continue incentive spirometer, added Acapella and Mucinex 1200 mg twice daily. 4. Acute hypoxemic respiratory failure, not present on admission. Improving. -Secondary to postoperative atelectasis and right basilar pneumonia. -Continue respiratory therapy evaluation and treatment. Continue supplemental oxygen as necessary to maintain oxygen saturation 88-92% and titrate off as tolerated. Continue albuterol nebs every 4 hours as needed for shortness of breath or wheezing. Continue incentive spirometer, added Acapella and Mucinex 1200 mg twice daily. -Treat postoperative pneumonia with antibiotics as above. 5. Diabetes mellitus type 2, insulin using, present on admission. Active. -Hemoglobin A1c 8.5% indicative of fair glycemic control. Patient has longstanding diabetes mellitus type 2 without complications and diabetic regimen includes Trulicity, Levemir and nutritional NovoLog. -Continue blood glucose checks every 6 hours while NPO and regular insulin both scheduled 5 units every 6 hours and high-dose correctional scale every 6 hours. -Continue Lantus 20 units twice daily while NPO and will titrate up/restart home regimen as diet is advanced. 6. Hypertension, chronic, present on admission. Stable. -Patient has been periodically hypertensive with SBP 160s to 190s. -Held home losartan 50 mg daily and may resume when able to take in PO intake per surgical team. -Continue pain management and ordered labetalol 10 mg IV every 4 hours as needed for SBP > 180 mmHg sustained for 15 minutes and HR > 60. 7. Hyperlipidemia, chronic, present on admission. Stable. -Patient is NPO except for medications per surgical team. Restart home rosuvastatin 40 mg daily. Thank you for this most interesting consult. Medicine team will continue to follow along for glycemic management and any additional needs. Quality VTE Deep Vein Thrombosis/Pulmonary Embolism Present on Admission: No
[2019-09-12] MEDS: TAMSULOSIN 0.4 MG CAPSULE PO (08:45)
[2019-09-12] MEDS: PANTOPRAZOLE 40 MG VIAL 20 MG IV ×2 (08:45→20:53)
[2019-09-12] MEDS: LOSARTAN 50 MG TABLET PO (08:46)
[2019-09-12] MEDS: ENOXAPARIN 40 MG/0.4 ML SYRINGE SUBCUT (08:51)
[2019-09-12] MEDS: INSULIN GLARGINE 100 UNIT/ML 3ML PEN 20 UNIT SUBCUT ×2 (09:25→20:54)
[2019-09-12] MEDS: LABETALOL 20 MG/4 ML SYRINGE 10 MG IV (09:26)
[2019-09-12] MEDS: HYDROMORPHONE 1 MG INJ IV (10:38)
--- NOTE | 2019-09-12 11:32 | PC.NURSE ---
Addendum entered by Nanda Narayan R.N. 09/12/19 15:36: Temp 100.4 Pt enc to continue IS and DB & c, Dr Fisher updated, and plan to trial clamp NG this evening. Addendum entered by Nanda Narayan R.N. 09/12/19 14:23: 1410-Pt up to BS, passing flatus, multiple times, confirmed by this RN. Pt able to void urine as well, bladder scan done for PVR of 7mls. Scant stooling to toilet paper, but no significant accumulation. Pt reports substantial relief to ABD pressure after void. Addendum entered by Nanda Narayan R.N. 09/12/19 13:15: Pt BP improved, 143/73 P-72, Spo2 on RA stable, 90-92% Pt is up ambulating in room, and reports readiness for flatus, but denies passing any at present. Up to [facility], voiding has been in small quantities, 50-75mls at a time, standing, or seated at [facility]. Flomax has been started, and continues. Bladder scan shows 190mls, Pt would like to attempt to pass and monitor Original Note: Am Shift Pt A/o x4, reports less pain overnight, Spo2 6L 94%, Pt needing enc to DB & C. Very Fine crackles to Anant lung bases. R>L. Productive cough noted today, not present 24 hrs ago. Thick/yellow sputum noted to tissue. NG tube in place to R nare, patent, LIS, green liquid collecting. Pt is having ice chips, denies any nausea. BT improving, but remain hypoactive. Pt denies flatus, I don't think I have had any gas, I thought possibly once, but it's burping Reminded Pt to notify staff of changes, flatus ect. Spo2 parameters 88-92, weaning down and currently on 3L NC. 1PA FWW, and PT eval ordered. Enc ambulation TID. Pt is up to chair with POC to include ambulating in halls today. NG clamped after PO meds, elevated BP, required 10mg Lobatolol x1 this shift. Using call light for needs. CBG 194 at 0945.
--- NOTE | 2019-09-12 12:36 | PT.IIE ---
Current Diagnoses Unspecified intestinal obstruction, unspecified as to partial versus complete obstruction (09/09/19) Other specified postprocedural states (09/09/19) Surgery Performed Operation Date: 09/09/19 16:00 Actual Procedures p Small bowel resection, cholecystectomy - Dandre Bauman MD Surgical History (Last Reviewed 09/10/19 @ 20:39 by JF Rosado) History of cataract surgery (Acute) History of esophagogastroduodenoscopy (EGD) (Acute) Medical History (Last Reviewed 09/10/19 @ 20:39 by JF Rosado) Diabetes (Acute) Gastritis (Acute) Hyperlipidemia (Acute) Hypertension (Acute) Physical Therapy Inpatient Evaluation/Re-Eval M1 PT/OT-IP Prior Functional Status Start: 09/12/19 12:06 Freq: NEEDED Status: Active Protocol: Document 09/12/19 11:20 NFW (Rec: 09/12/19 12:35 NFW [id number]) Medical Review Prior Functional Status Medical History Reviewed Yes Mobility and Gait On the most part patient does not use any walking aids. When walking his dog he will occasionally take a walking stick. Activities of Daily Living and IADL's Independent with ADL & IADLs. Prior Functional Level (Other details) Active with activities around the home including climbing ladders and cleaning gutters, electrical work, plumbing. Drives as needed and assist with the cooking and yardwork around the home. Social History Household Members spouse Living Arrangements House Number of Floors (Floors) One Floor Number of Stairs To Enter/Railing? 2 steps into home, handrails both sides. Home Environment High Toilet,Walk in Shower,Tub /Shower Home Equipment Quad Cane,Grab Bars Near Toilet,Grab Bars In Shower Employment Status Retired M2 PT-IP Current Condition Start: 09/12/19 12:06 Freq: NEEDED Status: Active Protocol: Document 09/12/19 11:20 NFW (Rec: 09/12/19 12:35 NFW [id number]) Physical Therapy Current Condition Current Condition Evaluation Date 09/12/19 Treatment Diagnosis s/p sm bowel resection, cholecystectomy; weakness Weight Bearing Status Weight Bearing Status Weight Bear as Tolerated M3 PT-IP Subjective Start: 09/12/19 12:06 Freq: NEEDED Status: Active Protocol: Document 09/12/19 11:20 NFW (Rec: 09/12/19 12:35 NFW [id number]) Subjective Physical Therapy Visit Type Type Initial Evaluation Visit Start Time 11:20 Visit Stop Time 12:05 Total Visit Minutes 45 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 No complaints of pain. Patient Goals Return home with . Therapy Pain Assessment Pain When Pain Assessed At Rest Pain Present Pain Present Denied Pain M4 PT-IP Mobility and Gait Start: 09/12/19 12:06 Freq: NEEDED Status: Active Protocol: Document 09/12/19 11:20 NFW (Rec: 09/12/19 12:35 NFW [id number]) PT-Bed Mobility Assessment Rolling Level of Assist Standby Assistance,1 Person Assistance Supine to Sit Supine to Sit Contact Guard Assistance,1 Person Assistance,Bedrails Scooting Scooting to Edge of Bed Standby Assistance Scooting Up and Down in Bed Standby Assistance PT-Transfer Assessment Sit to and From Stand Sit to and from Stand Standby Assistance,1 Person Assistance Equipment Transfer Assistive Device Gait Belt,Front Wheeled Walker Orthotic/Prosthetic Devices or Brace: No Transfers Transfer Destination Bed,Chair Transfer Ability Level of Assist Contact Guard Assistance,1 Person Assistance Comments Mobility Comments Most difficulty log rolling then progressing into sitting. Today he needed to use the handrails. First attempt to stand from sitting needed to use UE. After several attempts able to sit and stand without depending on UE. Gait Assessment Gait Gait Assistance Required: Contact Guard Assist Distance (Feet) 10 Able to Maintain Weight Bearing Status Yes During Gait Assistive Devices Assistive Device Gait Belt Orthotic/Prosthetic Devices or Brace: No Gait Deviations General Gait Pattern Lateral Trunk Lean,Wide Based Gait Factors Limiting Gait Function Factors Limiting Gait Function Abnormal Tonal Influences, Decreased Activity Tolerance, Decreased Strength, Incoordination Comments Gait Comments Initially used FWW in walking between bed and chair. 2nd attempt transfered without walker. Labored breathing noted. PT-Balance Assessment Sitting Balance and Reactions Static Sitting Balance Ability Normal Dynamic Sitting Balance Ability Normal Standing Balance and Reactions Static Standing Balance Ability Normal Dynamic Standing Balance Ability Normal Balance Tests Romberg negative Functional Reach Test negative Comments Other Balance Tests/Deviations/Treatment Standing marches x10 in a row. : Sit to stand x4 without use of UE. BP supine 168/79, pulse 85 BP after exercise 197/93, pulse 90 BP - 5 min. after exercise 143 /73, pulse 90 O2 without oxygen ~ 90. Functional Assessments Functional Tests 5 Times Sit to Stand negative M5 PT-IP Objective Assessments Start: 09/12/19 12:06 Freq: NEEDED Status: Active Protocol: Document 09/12/19 11:20 NFW (Rec: 09/12/19 12:35 [facility] [id number]) Orientation Orientation/Cognition Level of Alertness Alert Orientation Name,Date,Place,Situation Language Function Ability No Deficits Noted Safety Awareness Understands Safety Issues Comments Discussed pacing of activites as he regains his strength. Instruction on breathing in slowing through the nose and out through the mouth. Gross Range of Motion Upper Extremity ROM Assessment Within Functional Limits Lower Extremity ROM Assessment Within Functional Limits Strength Upper Extremity Strength Assessment Within Functional Limits Lower Extremity Strength Assessment Within Functional Limits Comments Strength Comments Left highballer weaker than right. Muscle Tone Muscle Tone WNL Yes M7 PT-IP Assessment and Plan Start: 09/12/19 12:06 Freq: NEEDED Status: Active Protocol: Document 09/12/19 11:20 NFW (Rec: 09/12/19 12:35 [facility] [id number]) PT Summary Assessment and Plan Potential Rehabilitation Potential Excellent Status of Condition at Evaluation Evolving Summary Impairments Strength,Balance,Bed Mobility, Transfers,Gait,Activity Tolerance Progress Towards Goals Progressing Toward Goals Assessment Summary Pt s/p small bowel resection, cholesystectomy. Generalized weakness post. Lower tolerance to activity, needs BP monitored. Cuing for proper body mechanics in and out of bed needed. Pt left in chair with chair alarm, nurse call button and with friends that were visiting. By request of nursing did not put oxygen cannula on pt. Goals Bed Mobility Goal Independent Transfer Goal Independent Gait Goal Independent Days to Meet Goals 3 Frequency of Treatment Frequency Of Treatment Once a Day Treatment Plan Physical Therapy Treatment Plan Bed Mobility Training,Transfer Training,Gait Training, Therapeutic Exercise,Balance Retraining,Coordination Retraining Other Recommendations and Next Treatment Stairs Focus Recommendations To Nursing Amount of Assist Needed 1 Person Assist Discharge Recommendations PT Discharge Recommendations Home with Assistance
--- NOTE | 2019-09-12 15:31 | PM.PN.1 ---
Subjective Subjective Date Patient Seen: 09/11/19 Time Patient Seen: 20:23 Interval history: Denies nausea. Passing copious flatus this afternoon. Williamson out yesterday with intermittent straight cath required x 2, now voiding more on his own. Exam Vital Signs (past 8 hours): - 09/12/19 07:45 09/12/19 08:28 09/12/19 08:30 Temperature 98.5 F Pulse Rate 92 H Respiratory Rate 19 Blood Pressure 177/80 H Pulse Oximetry 93 92 88 L 09/12/19 10:36 09/12/19 12:00 09/12/19 13:00 Temperature 100.4 F H Pulse Rate 72 74 Respiratory Rate 18 Blood Pressure 145/86 H 143/73 H Pulse Oximetry 91 09/12/19 13:59 Temperature Pulse Rate 85 Respiratory Rate 16 Blood Pressure Pulse Oximetry 94 Fraction of Inspired Oxygen 40 Oxygen Delivery Method High Flow Nasal Cannula Oxygen Flow Rate 3 Narrative Exam Narrative: GENERAL: Alert, comfortable, conversant HENT: NG tube in place, no bleeding or swelling around the tube; NG tube is sumping appropriately CARDIOVASCULAR: noraml rate and rhythm, no LE edema RESPIRATORY: Non-tachypneic, breathing comfortably on room air GASTROINTESTINAL: Abdomen soft and moderately distended, incision c/d/i; no drainage or erythema GENITALURINARY: No flank tenderness. MUSCULOSKELETAL: Equal tone and mass bilaterally. SKIN: Warm, dry, soft, appropriate color for ethnicity. No other lesions, rashes, or wounds. NEURO: Alert and Oriented X 3. No gross sensory deficits, or cognitive issues. PSYCH: Appropriate affect and mood. Objective Labs Result Diagrams: 09/12/19 04:32 09/12/19 04:32 Labs: Laboratory Results - last 24 hr 09/09/19 09/10/19 09/11/19 11:27 08:25 18:05 WBC RBC Hgb Hct MCV MCH MCHC RDW Plt Count Neut % (Auto) Lymph % (Auto) [place] % (Auto) Eos % (Auto) Baso % (Auto) Neut # (Auto) Lymph # (Auto) [place] # (Auto) Eos # (Auto) Baso # (Auto) Sodium Potassium Chloride Carbon Dioxide BUN Creatinine Estimated GFR BUN/Creatinine Ratio Glucose Lactate 1.7 Calcium Magnesium Total Bilirubin AST ALT Alkaline Phosphatase Total Protein Albumin Globulin Albumin/Globulin Ratio Procalcitonin < 0.05 5.05 H 02/09/20 02/09/20 02/09/20 04:32 04:32 04:32 WBC 18.1 H RBC 4.50 Hgb 13.6 Hct 39.9 L MCV 88.6 MCH 30.1 MCHC 34.0 RDW 14.2 Plt Count 164 Neut % (Auto) 81.0 H Lymph % (Auto) 10.1 L [place] % (Auto) 7.8 Eos % (Auto) 0.6 L Baso % (Auto) 0.5 Neut # (Auto) 44635 H Lymph # (Auto) 1800 [place] # (Auto) 1400 H Eos # (Auto) 100 Baso # (Auto) 100 Sodium Potassium Chloride Carbon Dioxide BUN Creatinine Estimated GFR BUN/Creatinine Ratio Glucose Lactate Calcium Magnesium 2.3 Total Bilirubin AST ALT Alkaline Phosphatase Total Protein Albumin Globulin Albumin/Globulin Ratio Procalcitonin 2.05 H 09/12/19 04:32 WBC RBC Hgb Hct MCV MCH MCHC RDW Plt Count Neut % (Auto) Lymph % (Auto) [place] % (Auto) Eos % (Auto) Baso % (Auto) Neut # (Auto) Lymph # (Auto) [place] # (Auto) Eos # (Auto) Baso # (Auto) Sodium 142 Potassium 3.8 Chloride 108 H Carbon Dioxide 29 BUN 20 Creatinine 0.70 Estimated GFR > 60.0 BUN/Creatinine Ratio 28.6 H Glucose 216 H Lactate Calcium 8.4 Magnesium Total Bilirubin 1.9 H AST 87 H ALT 47 Alkaline Phosphatase 50 Total Protein 6.2 L Albumin 3.2 L Globulin 3.0 Albumin/Globulin Ratio 1.1 Procalcitonin Assessment & Plan Assessment and plan (1) Status post laparotomy: Current visit: Yes Status: Acute (2) Small bowel obstruction: Current visit: Yes Status: Acute Assessment & Plan narrative: 74 yo man POD#3 s/p SBR for infarcted bowel. WBC persistently low 20's, sats low 90's on 5+L NC. CT'ed to find source of WBC. Nothing significant other than lung consolidation/dense atelectasis. Clamp NG tube, remove if residual less than 100 after 4 hours Ambulate as tolerated Continue IV Zosyn and Flagyl for now Incentive spirometer Time Spent With Patient Time with patient: 15-24 minutes Quality VTE Deep Vein Thrombosis/Pulmonary Embolism Present on Admission: No
--- NOTE | 2019-09-12 20:38 | PC.NURSE ---
Addendum entered by Helga Wilder R.N. 09/12/19 21:22: 2115- NGT pulled per MD order. Patient tolerated well. Output for this shift 175cc. will monitor. Original Note: 1914- Patient assisted oob to commode. Patient is voiding adequately without need of in/out cath. Patient had a small formed stool and is passing gas. Bowel tones present in all four quadrants. Patient has not complained of pain. Patient BP has been at parameters. Will monitor.
[2019-09-12] MEDS: guaiFENesin ER 600 MG TAB 1200 MG PO (20:53)
[2019-09-12] MEDS: ATORVASTATIN 20 MG TABLET 40 MG PO (20:54)
[2019-09-13] VITALS (16 sets, daily range): BP systolic 140–198; BP diastolic 76–109; PULSE 76–90; RESP 16–24; TEMP 36.7–37.6; O2SAT 91–98
[2019-09-13] MEDS: PIPERACILLIN-TAZO 3.375 GM/50 ML FROZ.PIGGY IV ×4 (00:44→18:55)
[2019-09-13] MEDS: SODIUM CHLORIDE 0.45% 1,000 ML 125 ML IV (00:46)
--- NOTE | 2019-09-13 00:50 | PC.NURSE ---
Addendum entered by Lars Smion R.N. 09/13/19 05:02: 0300: CBG 164. No sliding scale insulin given per protocol. Original Note: Pharmacy Intake Coordinator Note: 0000: Awake, assisted to turn and reposition. IVs in place in lt AC and lt forearm, with 1/2ns infusing at 125cc/hr. SCDs on. Vital signs stable. Abdominal dressing cdi, and abdominal binder remains on. Pt remains on O2 3L via HFNC. Pt denies pain in abdomen and declines any pain medication.
[2019-09-13] MEDS: metroNIDAZOLE 500 MG/100 ML PIGGYBACK 100 MG IV ×3 (01:43→17:49)
[2019-09-13] MEDS: INSULIN REGULAR 100 UNIT/ML 3 ML VIAL SUBCUT ×7 (03:05→21:00)
[2019-09-13 05:33] LABS: Add Manual Diff / Slide Review NO; Basophils Absolute Auto 100 /uL (0-100); Basophils Percent Auto 0.4 % (0-2); Eosinophils Absolute Auto 400 /uL (0-450); Eosinophils Percent Auto 2.7 % (2-4); Hematocrit 38.4 % (41-53); Hemoglobin 13.4 g/dL (13.5-17.5); Lymphocytes Absolute Auto 1900 /uL (1100-4500); Mean Corpuscular Hemoglobin 30.4 PG (26-34); Mean Corpuscular Volume 86.8 fL (80-100); Monocytes Absolute Auto 1200 /uL (0-900); Monocytes Percent Auto 7.8 % (3-14); Neutrophils Absolute Auto 12000 /uL (1500-7000); Neutrophils Percent Auto 77.1 % (50-75); Platelet Count 177 X10^3/uL (150-400); Red Blood Cell Count 4.42 X10^6/uL (4.5-5.9); Red Cell Distribution Width 13.9 % (11.6-14.8); White Blood Cell Count 15.6 X10^3/uL (4.5-11.0)
[2019-09-13 05:41] LABS: BUN Creatinine Ratio 27.1 (6-22); Blood Urea Nitrogen 19 mg/dL (9-20); Calcium 7.9 mg/dL (8.4-10.2); Carbon Dioxide 28 mmol/L (22-32); Chloride 106 mmol/L (98-107); Estimated Glomerular Filt Rate > 60.0 mL/min (>60); Glucose 173 mg/dL (80-110); HEMOLYSIS < 15 (0-50); Magnesium 2.2 mg/dL (1.6-2.3); Potassium 3.3 mmol/L (3.4-5.1); Sodium 139 mmol/L (137-145)
[2019-09-13] MEDS: guaiFENesin ER 600 MG TAB 1200 MG PO ×2 (07:27→20:58)
[2019-09-13] MEDS: ENOXAPARIN 40 MG/0.4 ML SYRINGE SUBCUT (07:27)
[2019-09-13] MEDS: PANTOPRAZOLE 40 MG VIAL 20 MG IV (07:28)
[2019-09-13] MEDS: LOSARTAN 50 MG TABLET PO (07:37)
[2019-09-13] MEDS: TAMSULOSIN 0.4 MG CAPSULE PO (07:40)
[2019-09-13] MEDS: POTASSIUM CHLORIDE 40 MEQ in SODIUM CHLORIDE 0.9% 500 ML 130 ML IV (08:18)
[2019-09-13] MEDS: LABETALOL 20 MG/4 ML SYRINGE 10 MG IV (08:36)
[2019-09-13] MEDS: INSULIN GLARGINE 100 UNIT/ML 3ML PEN 20 UNIT SUBCUT ×2 (08:40→21:03)
--- NOTE | 2019-09-13 08:42 | PC.NURSE ---
Addendum entered by Radha Silva R.N. 09/13/19 12:35: Patient had small formed BM and unmeasured void. Ambulated in davalos with FWW, gait steady. ate 50% of general diet, no nausea, denies pain. Sats on RA 93% patient up in chair. Addendum entered by Radha Silva R.N. 09/13/19 09:46: Bp continues to be elevated after IVP 20mg Labetolol and PO losartan. BP 192/[address] Rausch aware, new orders received. Original Note: Patient sitting up in chair, denies pain,nausea, shortness of breath. BT+, BP elevated, 196/91 HR 90 10 mg IVP Labetolol given. DR Rausch aware and in room rounding on patient. While MD in room, patient HR up to rate 144, sinus, patient denies palpitations and chest pain, EKG ordered. Sats on RA 88-90% placed back on 2.5L NC sats 91%, LS clear but diminished.
--- NOTE | 2019-09-13 08:54 | PT-IP ANOTE ---
RN requested pt not be seen until this afternoon. Per RN pt BP elevated, 196/91 and has just returned to bed.
[2019-09-13] MEDS: METOPROLOL ER 50 MG TABLET PO ×2 (10:28→20:58)
[2019-09-13] MEDS: SODIUM CHLORIDE 0.9% FLUSH 10 ML IV (10:29)
--- NOTE | 2019-09-13 13:23 | P.PN_ITS ---
Subjective Subjective Date Patient Seen: 09/13/19 Interval history: The patient is a 74-year-old male admitted to the hospital following a small bowel obstruction with a sodium associated bowel infarction. Patient had very little flatus and was not eating yesterday. He had several bowel movements today. In addition the patient has had intermittent atrial tachycardia, this will respond quickly on its own. He remains hypertensive despite taking his losartan. Exam Vital Signs (past 8 hours): - 09/13/19 06:15 09/13/19 07:30 09/13/19 08:30 Temperature 98.3 F 98.5 F Pulse Rate 85 88 90 Respiratory Rate 21 24 16 Blood Pressure 192/95 H 198/92 H 196/91 H Pulse Oximetry 91 93 91 09/13/19 08:36 09/13/19 09:28 09/13/19 09:30 Temperature Pulse Rate 90 83 83 Respiratory Rate Blood Pressure 196/91 H 192/109 H 189/108 H Pulse Oximetry 09/13/19 09:43 09/13/19 11:23 09/13/19 11:24 Temperature Pulse Rate 83 83 82 Respiratory Rate Blood Pressure 192/109 H 181/92 H 181/92 H Pulse Oximetry 93 09/13/19 12:35 09/13/19 12:54 Temperature Pulse Rate 88 Respiratory Rate Blood Pressure 161/76 H Pulse Oximetry 93 Fraction of Inspired Oxygen 40 Oxygen Delivery Method Nasal Cannula Oxygen Flow Rate 0 Narrative Exam Narrative: Pleasant male resting comfortably in no obvious distress Lungs: Decreased breath sounds, no rhonchi crackles or wheezes Cardiac exam tachycardic regular rate and rhythm normal S1-S2 Abdomen: Abdominal binder in place belly soft Extremities: No edema Objective Labs Result Diagrams: 09/13/19 04:45 09/13/19 04:45 Labs: Laboratory Results - last 24 hr 09/13/19 09/13/19 04:45 04:45 WBC 15.6 H RBC 4.42 L Hgb 13.4 L Hct 38.4 L MCV 86.8 MCH 30.4 MCHC 35.0 RDW 13.9 Plt Count 177 Neut % (Auto) 77.1 H Lymph % (Auto) 12.0 L [place] % (Auto) 7.8 Eos % (Auto) 2.7 Baso % (Auto) 0.4 Neut # (Auto) 64379 H Lymph # (Auto) 1900 [place] # (Auto) 1200 H Eos # (Auto) 400 Baso # (Auto) 100 Sodium 139 Potassium 3.3 L Chloride 106 Carbon Dioxide 28 BUN 19 Creatinine 0.70 Estimated GFR > 60.0 BUN/Creatinine Ratio 27.1 H Glucose 173 H Calcium 7.9 L Magnesium 2.2 Assessment & Plan Assessment & Plan narrative: Acute small-bowel obstruction with infarcted bowel, status post small bowel resection, present on admission. Active. -patient has had flatus and bowel movements, anticipate diet advanced today -surgical management per General surgery 2. Acute cholelithiasis without cholecystitis, status post cholecystectomy, present on admission. Active. - -continue postoperative care per surgery 3. Acute postoperative right lower lobe pneumonia, not present on admission. Active. -CT chest without contrast demonstrated dense consolidation of right lung base with atelectasis. -Continue Zosyn 3.375 g IV every 8 hours and Flagyl 500 mg IV every 8 hours as above. -Continue respiratory therapy evaluation and treatment. Continue supplemental oxygen as necessary to maintain oxygen saturation 88-92% and titrate off as tolerated. Continue albuterol nebs every 4 hours as needed for shortness of breath or wheezing. Continue incentive spirometer, added Acapella and Mucinex 1200 mg twice daily. -it is unclear whether his pneumonia is postoperative related to surgery or a hospital-acquired pneumonia. 4. Acute hypoxemic respiratory failure, not present on admission. Improving. -Secondary to postoperative atelectasis and right basilar pneumonia. -Continue respiratory therapy evaluation and treatment. Continue supplemental oxygen as necessary to maintain oxygen saturation 88-92% and titrate off as tolerated. Continue albuterol nebs every 4 hours as needed for shortness of breath or wheezing. Continue incentive spirometer, added Acapella and Mucinex 1200 mg twice daily. -Treat postoperative pneumonia with antibiotics as above. 5. Diabetes mellitus type 2, insulin using, present on admission. Active. -Hemoglobin A1c 8.5% indicative of fair glycemic control. Patient has longstanding diabetes mellitus type 2 without complications and diabetic regimen includes Trulicity, Levemir and nutritional NovoLog. -Continue blood glucose checks every 6 hours while NPO and regular insulin both scheduled 5 units every 6 hours and high-dose correctional scale every 6 hours. -Continue Lantus 20 units twice daily while NPO and will titrate up/restart home regimen as diet is advanced. 6. Hypertension, chronic, present on admission. Stable. -Patient has been periodically hypertensive with SBP 160s to 190s. -Held home losartan 50 mg daily and may resume when able to take in PO intake per surgical team. -Continue pain management and ordered labetalol 10 mg IV every 4 hours as needed for SBP > 180 mmHg sustained for 15 minutes and HR > 60 -metoprolol add to his right. 7. Hyperlipidemia, chronic, present on admission. Stable. -Patient is NPO except for medications per surgical team. Restart home rosuvastatin 40 mg daily. 8. Atrial tachycardia intermittent will continue beta-anthony for rate control. Given recent surgery will defer anticoagulation at this time. It will obtain cardiac echo given his recurrent tachyarrhythmia. Quality VTE Deep Vein Thrombosis/Pulmonary Embolism Present on Admission: No
--- NOTE | 2019-09-13 14:01 | PT.IPTN ---
Current Diagnoses Unspecified intestinal obstruction, unspecified as to partial versus complete obstruction (09/09/19) Other specified postprocedural states (09/09/19) Surgery Performed Operation Date: 09/09/19 16:00 Actual Procedures p Small bowel resection, cholecystectomy - Dandre Bauman MD Physical Therapy Treatment Note M2 PT-IP Current Condition Start: 09/12/19 12:06 Freq: NEEDED Status: Active Protocol: Document 09/12/19 11:20 NFW (Rec: 09/12/19 12:35 NFW [id number]) Physical Therapy Current Condition Current Condition Evaluation Date 09/12/19 Treatment Diagnosis s/p sm bowel resection, cholecystectomy; weakness Weight Bearing Status Weight Bearing Status Weight Bear as Tolerated M3 PT-IP Subjective Start: 09/12/19 12:06 Freq: NEEDED Status: Active Protocol: Document 09/13/19 16:07 SP (Rec: 09/13/19 16:31 SP [id number]) Subjective Physical Therapy Visit Type Type Treatment Note Visit Start Time 13:35 Visit Stop Time 14:01 Total Visit Minutes 26 Number of PLASTIC JOINT MAKER Visits 1 Physical Therapy Visit Comments Patient Comments Pt was willing to work with PT . Therapy Pain Assessment Pain Present Pain Present Denied Pain M4 PT-IP Mobility and Gait Start: 09/12/19 12:06 Freq: NEEDED Status: Active Protocol: Document 09/13/19 16:07 SP (Rec: 09/13/19 16:31 SP [id number]) PT-Bed Mobility Assessment Rolling Type of Rolling Roll to Left Level of Assist Standby Assistance,1 Person Assistance Supine to Sit Supine to Sit Standby Assistance,Bedrails Scooting Scooting to Edge of Bed Independent PT-Transfer Assessment Sit to and From Stand Sit to and from Stand Standby Assistance,Use of Upper Extremities Equipment Transfer Assistive Device Gait Belt,Front Wheeled Walker Orthotic/Prosthetic Devices or Brace: No Transfers Transfer Technique Pt ambulated with FWW Transfer Ability Level of Assist Contact Guard Assistance,Use of Upper Extremities Comments Mobility Comments Pt was laying in bed and nursing changed IV when arrived. Nursing stated assess if can wean from O2 during treatment to room air. Log roll to L and supine to sitting close SBA with cuing for abdominal engagement awareness. Scooted to EOB I. Sit to stand SBA with using BUE from bed and use of FWW for balance. Encouraged patient upright posture, noted LE weakness and leaning forearms on FWW stationary standing for rest, declined return to sitting. Pt required cuing for FWW fully backing up prior to sitting for safety and easy transition BUE to sitting into chair when returned from a walk SBA. PLASTIC JO[employer] MAKER managed IV pole. Gait Assessment Gait Gait Assistance Required: Standby Assistance,Contact Guard Assist Distance (Feet) 136 Able to Maintain Weight Bearing Status Yes During Gait Assistive Devices Assistive Device Gait Belt,Front Wheeled Walker Orthotic/Prosthetic Devices or Brace: No Gait Deviations General Gait Pattern Antalgic,Wide Based Gait Factors Limiting Gait Function Factors Limiting Gait Function Abnormal Tonal Influences, Decreased Activity Tolerance, Decreased Strength,Poor Balance,Poor Safety Awareness, Respiratory Distress Comments Gait Comments Pt was ableto increase distance during ambulation around [facility] usign FWW SBA- CGA with cuing for slower pacing with slow breath and body occaionallly closer to FWW for safety and energy conservation. Pt was ableto maintain low 90% Sat on room air. Stair Climbing Assessment Evaluation Level of Assist On Stairs Contact Guard Assistance,1 Person Assistance Devices Stair Climbing Assistive Devices Front Wheel Walker Technique/Endurance Stair Climbing Direction Ascend and Descend Stair Climbing Technique Step to Step Number of Steps Climbed 1 Stair Climbing Set # Repetitions (reps) 3 Comments Stair Climbing Comments Pt was able to ascend/descend 1 plateform step happen to be near room using FWW step to gait CGA with occasional cuing for slow FWW positioning and pacing for safety. No LOB. Next tx assess 3 step mgt BHR. PT-Balance Assessment Sitting Balance and Reactions Static Sitting Balance Ability Normal Dynamic Sitting Balance Ability Normal Standing Balance and Reactions Static Standing Balance Ability Normal Dynamic Standing Balance Ability Good M5 PT-IP Objective Assessments Start: 09/12/19 12:06 Freq: NEEDED Status: Active Protocol: Document 09/12/19 11:20 NFW (Rec: 09/12/19 12:35 NFW [id number]) Orientation Orientation/Cognition Level of Alertness Alert Orientation Name,Date,Place,Situation Language Function Ability No Deficits Noted Safety Awareness Understands Safety Issues Comments Discussed pacing of activites as he regains his strength. Instruction on breathing in slowing through the nose and out through the mouth. Gross Range of Motion Upper Extremity ROM Assessment Within Functional Limits Lower Extremity ROM Assessment Within Functional Limits Strength Upper Extremity Strength Assessment Within Functional Limits Lower Extremity Strength Assessment Within Functional Limits Comments Strength Comments Left tea blender weaker than right. Muscle Tone Muscle Tone WNL Yes M6 PT-IP Treatment Start: 09/12/19 12:06 Freq: NEEDED Status: Active Protocol: Document 09/13/19 16:07 SP (Rec: 09/13/19 16:31 SP [id number]) Physical Therapy Treatment Exercises Exercises Ankle Pumps,Gluteal Sets,Quad Sets,Heel Slides,Straight Leg Raises,Seated Knee Flexion/ Extension Education Education Provided Safety Other Treatments Other Treatment Performed Educated core facilitation body mechanics during log roll and supine to sitting for bracing safety. M7 PT-IP Assessment and Plan Start: 09/12/19 12:06 Freq: NEEDED Status: Active Protocol: Document 09/13/19 16:07 SP (Rec: 09/13/19 16:31 SP [id number]) PT Summary Assessment and Plan Potential Rehabilitation Potential Excellent Status of Condition at Evaluation Evolving Summary Impairments Strength,Balance,Bed Mobility, Transfers,Gait,Activity Tolerance Progress Towards Goals Progressing Toward Goals Assessment Summary Pt safe vital during tx. BP 152/72 supine, HR 87, O2 Sat on 2 L when arrived maintained 90-91% on room air with gait activity. Cuing for proper body mechanics in and out of bed needed to support abdominal bracing safety. Pt required decreased A this afternoon, able to progress in distance during gait and stair mgt sBA- CGA using FWW, cuing for slower pacing and proper breath for energy conservation. Pt left in chair with chair alarm, nurse call button and all needs in reach. By request of nursing did not put oxygen cannula on pt. Goals Bed Mobility Goal Independent Transfer Goal Independent Gait Goal Independent Days to Meet Goals 3 Frequency of Treatment Frequency Of Treatment Once a Day Treatment Plan Physical Therapy Treatment Plan Bed Mobility Training,Transfer Training,Gait Training, Therapeutic Exercise,Balance Retraining,Coordination Retraining Other Recommendations and Next Treatment 3 step Stair mgt with BHR and Focus slower pacing during gait, continue standign balance activities, reassess mechanics during sup<>sitting. Recommendations To Nursing Amount of Assist Needed 1 Person Assist Discharge Recommendations PT Discharge Recommendations Home with Assistance
--- NOTE | 2019-09-13 15:13 | P.PN_ITS ---
Subjective Subjective Date Patient Seen: 09/13/19 Time Patient Seen: 15:13 Interval history: Status post small bowel resection. Having bowel movements passing gas tolerating liquid diet without nausea or vomiting. Pain well controlled. Exam Vital Signs (past 8 hours): - 09/13/19 07:30 09/13/19 08:30 09/13/19 08:36 Temperature 98.5 F Pulse Rate 88 90 90 Respiratory Rate 24 16 Blood Pressure 198/92 H 196/91 H 196/91 H Pulse Oximetry 93 91 09/13/19 09:28 09/13/19 09:30 09/13/19 09:43 Temperature Pulse Rate 83 83 83 Respiratory Rate Blood Pressure 192/109 H 189/108 H 192/109 H Pulse Oximetry 09/13/19 11:23 09/13/19 11:24 09/13/19 12:35 Temperature Pulse Rate 83 82 Respiratory Rate Blood Pressure 181/92 H 181/92 H Pulse Oximetry 93 93 09/13/19 12:54 Temperature Pulse Rate 88 Respiratory Rate Blood Pressure 161/76 H Pulse Oximetry Fraction of Inspired Oxygen 40 Oxygen Delivery Method Nasal Cannula Oxygen Flow Rate 0 Narrative Exam Narrative: General adult male alert oriented no acute distress Chest nonlabored respirations Abdomen soft appropriately tender to palpation. Midline incision clean dry intact with mike. Objective Labs Result Diagrams: 09/13/19 04:45 09/13/19 04:45 Labs: Laboratory Results - last 24 hr 09/13/19 09/13/19 04:45 04:45 WBC 15.6 H RBC 4.42 L Hgb 13.4 L Hct 38.4 L MCV 86.8 MCH 30.4 MCHC 35.0 RDW 13.9 Plt Count 177 Neut % (Auto) 77.1 H Lymph % (Auto) 12.0 L [place] % (Auto) 7.8 Eos % (Auto) 2.7 Baso % (Auto) 0.4 Neut # (Auto) 97803 H Lymph # (Auto) 1900 [place] # (Auto) 1200 H Eos # (Auto) 400 Baso # (Auto) 100 Sodium 139 Potassium 3.3 L Chloride 106 Carbon Dioxide 28 BUN 19 Creatinine 0.70 Estimated GFR > 60.0 BUN/Creatinine Ratio 27.1 H Glucose 173 H Calcium 7.9 L Magnesium 2.2 Assessment & Plan Post-op Postoperative Procedures: Procedures Operation Date: 09/09/19 16:00 Actual Procedures Side Surgeon p Small bowel resection, cholecystectomy Dandre Bauman MD Postoperative status narrative: The 74-year-old male 4 days status post exploratory laparotomy small-bowel resection for ischemic enteritis. He is recovering appropriately in has return of bowel function. -pneumonia unclear if community-acquired versus hospital-acquired treating with Zosyn white blood cell count down trending as well as procalcitonin. Appreciate Medicine recommendations. Continue antibiotics wean oxygen is able -small-bowel obstruction-resolve. Pathology reviewed demonstrates small-bowel ischemia. Has return of bowel function advanced diet as tolerated. Transition to p.o. meds. -physical therapy pending-I anticipate rehab -VTE prophylaxis-Lovenox and SCDs Quality VTE Deep Vein Thrombosis/Pulmonary Embolism Present on Admission: No
[2019-09-13] MEDS: FUROSEMIDE 20 MG/2 ML VIAL IV (16:14)
--- NOTE | 2019-09-13 18:57 | PC.NURSE ---
Pt ambulated ICU x1 loop with walker./ Strong steady gait noted.
[2019-09-13] MEDS: ATORVASTATIN 20 MG TABLET 40 MG PO (20:58)
[2019-09-14 00:05] VITALS: BP 164/74; PULSE 69; RESP 18; TEMP 36.9; O2SAT 90
[2019-09-14] MEDS: PIPERACILLIN-TAZO 3.375 GM/50 ML FROZ.PIGGY IV ×2 (01:16→06:15)
[2019-09-14 01:17] VITALS: BP 164/74; PULSE 69
[2019-09-14] MEDS: metroNIDAZOLE 500 MG/100 ML PIGGYBACK 100 MG IV ×2 (02:26→08:52)
--- NOTE | 2019-09-14 03:27 | PC.NURSE ---
Floor Covering Printer Assistant Note: 0020: Awake, vital signs stable. IV in place in rt wrist. SCDs on. Pt denies pain at this time. Abdominal binder in place over abdominal dressings.
[2019-09-14 03:41] VITALS: BP 156/72; PULSE 67; RESP 18; TEMP 37.3; O2SAT 88
[2019-09-14 05:26] LABS: Add Manual Diff / Slide Review NO; BUN Creatinine Ratio 27.1 (6-22); Basophils Absolute Auto 100 /uL (0-100); Basophils Percent Auto 0.7 % (0-2); Blood Urea Nitrogen 19 mg/dL (9-20); Calcium 7.9 mg/dL (8.4-10.2); Carbon Dioxide 28 mmol/L (22-32); Chloride 106 mmol/L (98-107); Eosinophils Absolute Auto 900 /uL (0-450); Eosinophils Percent Auto 7.4 % (2-4); Estimated Glomerular Filt Rate > 60.0 mL/min (>60); Glucose 113 mg/dL (80-110); HEMOLYSIS < 15 (0-50); Hematocrit 36.5 % (41-53); Hemoglobin 12.6 g/dL (13.5-17.5); Lymphocytes Absolute Auto 1800 /uL (1100-4500); Magnesium 2.1 mg/dL (1.6-2.3); Mean Corpuscular HGB Conc 34.5 % (30-36); Mean Corpuscular Hemoglobin 30.3 PG (26-34); Monocytes Absolute Auto 1100 /uL (0-900); Monocytes Percent Auto 9.6 % (3-14); Neutrophils Absolute Auto 7700 /uL (1500-7000); Neutrophils Percent Auto 66.3 % (50-75); Platelet Count 174 X10^3/uL (150-400); Potassium 3.6 mmol/L (3.4-5.1); Red Blood Cell Count 4.15 X10^6/uL (4.5-5.9); Red Cell Distribution Width 13.8 % (11.6-14.8); Sodium 139 mmol/L (137-145); White Blood Cell Count 11.6 X10^3/uL (4.5-11.0)
[2019-09-14 08:00] VITALS: BP 178/82; PULSE 67; RESP 17; TEMP 37.7; O2SAT 93
[2019-09-14] MEDS: ENOXAPARIN 40 MG/0.4 ML SYRINGE SUBCUT (08:52)
[2019-09-14] MEDS: guaiFENesin ER 600 MG TAB 1200 MG PO (08:52)
[2019-09-14 08:53] VITALS: BP 178/82
[2019-09-14] MEDS: METOPROLOL ER 50 MG TABLET PO (08:53)
[2019-09-14] MEDS: TAMSULOSIN 0.4 MG CAPSULE PO (08:53)
[2019-09-14] MEDS: LOSARTAN 50 MG TABLET PO (08:53)
[2019-09-14] MEDS: INSULIN REGULAR 100 UNIT/ML 3 ML VIAL SUBCUT (08:57)
[2019-09-14] MEDS: INSULIN GLARGINE 100 UNIT/ML 3ML PEN 20 UNIT SUBCUT (08:58)
--- NOTE | 2019-09-14 11:00 | PT.IPTN ---
Current Diagnoses Unspecified intestinal obstruction, unspecified as to partial versus complete obstruction (09/09/19) Other specified postprocedural states (09/09/19) Surgery Performed Operation Date: 09/09/19 16:00 Actual Procedures p Small bowel resection, cholecystectomy - Dandre Bauman MD Physical Therapy Treatment Note M2 PT-IP Current Condition Start: 09/12/19 12:06 Freq: NEEDED Status: Active Protocol: Document 09/12/19 11:20 NFW (Rec: 09/12/19 12:35 NFW [id number]) Physical Therapy Current Condition Current Condition Evaluation Date 09/12/19 Treatment Diagnosis s/p sm bowel resection, cholecystectomy; weakness Weight Bearing Status Weight Bearing Status Weight Bear as Tolerated M3 PT-IP Subjective Start: 09/12/19 12:06 Freq: NEEDED Status: Active Protocol: Document 09/14/19 11:00 CLB (Rec: 09/14/19 12:04 CLB [id number]) Subjective Physical Therapy Visit Type Type Treatment Note Visit Start Time 11:00 Visit Stop Time 11:21 Total Visit Minutes 21 Notes Pt present during tx. Number of LADLE PULLER Visits 2 Physical Therapy Visit Comments Patient Comments Pt stated he climbed stairs in stairwell with SENIOR ENGINEERING ASSOCIATE last evening and was agreeable to climb stairs with LADLE PULLER. Therapy Pain Assessment Pain Present Pain Present Denied Pain M4 PT-IP Mobility and Gait Start: 09/12/19 12:06 Freq: NEEDED Status: Active Protocol: Document 09/14/19 11:00 CLB (Rec: 09/14/19 12:04 CLB [id number]) PT-Bed Mobility Assessment Rolling Level of Assist Standby Assistance,1 Person Assistance Supine to Sit Supine to Sit Standby Assistance PT-Transfer Assessment Sit to and From Stand Sit to and from Stand Standby Assistance,Use of Upper Extremities Equipment Transfer Assistive Device Gait Belt,Front Wheeled Walker Orthotic/Prosthetic Devices or Brace: No Transfers Transfer Technique Pt ambulated with FWW Transfer Ability Level of Assist Contact Guard Assistance,Use of Upper Extremities Comments Mobility Comments Pt in bed upon arrival with present. Pt agreeable to climb stairs. Pt completed LR and supine to sit SBA with increase in pain, 1/ and stated it felt like pulling. Pt stood with use of UE's. Pt ambulated to stairwell near pt room and climbed down and up 12 steps CGA step over. Pt AZ 84 bpm and O2 on RA 94% recovering to 96% within ~20 seconds. Left pt in chair with present all needs within reach. Informed RN of pt progress and stair climbing. Gait Assessment Gait Gait Assistance Required: Contact Guard Assist Distance (Feet) 50 Able to Maintain Weight Bearing Status Yes During Gait Assistive Devices Assistive Device Gait Belt,Front Wheeled Walker Orthotic/Prosthetic Devices or Brace: No Gait Deviations General Gait Pattern Antalgic,Wide Based Gait Factors Limiting Gait Function Factors Limiting Gait Function Abnormal Tonal Influences, Decreased Activity Tolerance, Decreased Strength,Poor Balance,Poor Safety Awareness, Respiratory Distress Comments Gait Comments see mobility section Stair Climbing Assessment Evaluation Level of Assist On Stairs Contact Guard Assistance,1 Person Assistance Devices Stair Climbing Assistive Devices Left Railing,Right Railing Technique/Endurance Stair Climbing Technique Step to Step Number of Steps Climbed 12 Stair Climbing Set # Repetitions (reps) 1 Comments Stair Climbing Comments Pt able to climb up/down 12 steps with CGA. PT-Balance Assessment Sitting Balance and Reactions Static Sitting Balance Ability Normal Dynamic Sitting Balance Ability Normal Standing Balance and Reactions Static Standing Balance Ability Normal Dynamic Standing Balance Ability Good Comments Other Balance Tests/Deviations/Treatment sit-stand w/o UE x4 : M5 PT-IP Objective Assessments Start: 09/12/19 12:06 Freq: NEEDED Status: Active Protocol: Document 09/12/19 11:20 NFW (Rec: 09/12/19 12:35 NFW [id number]) Orientation Orientation/Cognition Level of Alertness Alert Orientation Name,Date,Place,Situation Language Function Ability No Deficits Noted Safety Awareness Understands Safety Issues Comments Discussed pacing of activites as he regains his strength. Instruction on breathing in slowing through the nose and out through the mouth. Gross Range of Motion Upper Extremity ROM Assessment Within Functional Limits Lower Extremity ROM Assessment Within Functional Limits Strength Upper Extremity Strength Assessment Within Functional Limits Lower Extremity Strength Assessment Within Functional Limits Comments Strength Comments Left charge master coordinator weaker than right. Muscle Tone Muscle Tone WNL Yes M6 PT-IP Treatment Start: 09/12/19 12:06 Freq: NEEDED Status: Active Protocol: Document 09/13/19 16:07 SP (Rec: 09/13/19 16:31 SP [id number]) Physical Therapy Treatment Exercises Exercises Ankle Pumps,Gluteal Sets,Quad Sets,Heel Slides,Straight Leg Raises,Seated Knee Flexion/ Extension Education Education Provided Safety Other Treatments Other Treatment Performed Educated core facilitation body mechanics during log roll and supine to sitting for bracing safety. M7 PT-IP Assessment and Plan Start: 09/12/19 12:06 Freq: NEEDED Status: Active Protocol: Document 09/14/19 11:00 CLB (Rec: 09/14/19 12:04 CLB [id number]) PT Summary Assessment and Plan Potential Rehabilitation Potential Excellent Status of Condition at Evaluation Evolving Summary Impairments Strength,Balance,Bed Mobility, Transfers,Gait,Activity Tolerance Progress Towards Goals Progressing Toward Goals Assessment Summary Pt is SBA for bed mobility and sit-stand with mild increase in abdominal pain during LR and supine-sit. Pt is CGA for gait and stair climbing. Pt AZ after stair climbing 84 bpm and O2 on RA 94-96%. Goals Bed Mobility Goal Independent Transfer Goal Independent Gait Goal Independent Days to Meet Goals 3 Frequency of Treatment Frequency Of Treatment Once a Day Treatment Plan Physical Therapy Treatment Plan Bed Mobility Training,Transfer Training,Gait Training, Therapeutic Exercise,Balance Retraining,Coordination Retraining Recommendations To Nursing Amount of Assist Needed 1 Person Assist Discharge Recommendations PT Discharge Recommendations Home with Assistance
--- NOTE | 2019-09-14 12:38 | PC.NURSE ---
PT REPORTS NO PAIN HAS BEEN AMBULATING AND TOOK SHOWER THIS AM- APPETITE GOOD AND DENIES NAUSEA- DISCHARGED FROM HOSPITAL AT THIS TIME- AFTER ALL QUESTIONS FROM BOTH PT AND HAVE BEEN ANSWERED SATISFACTORILY- and post op appt scheduled
--- NOTE | 2019-09-14 15:40 | P.DS_ITS ---
History of Present Illness History of Present Illness Chief complaint: stomach cramps,bad Narrative: This is a 74-year-old male with no prior abdominal surgery who presents with acute small-bowel obstruction. Over the course of the past 12 hours he has developed severe bilateral lower quadrant abdominal pain associated with nausea and bilious emesis. No no flatus, last bowel movement yesterday. CT exam of the abdomen pelvis which demonstrates some small-bowel obstruction with a clear transition point and some associated thickened mesentery and stranding of the bowel. No prior similar episodes. Pain improved with morphine. Admission with white blood cell count 12 lactic acid 1.7 creatinine normal. Gustavo medical history is significant for diabetes on insulin, obesity, htn. Non smoker no anticoagulation. Discharge Providers Provider Date of admission: 09/09/19 13:21 Discharge Date: 09/14/19 Consults: 09/10/19 17:51 Consult to Hospitalist Service Urgent Comment: Consulting Provider: Bre Sandoval Reason for consultation: Hyperglycemia, diabetic, blood sugar greater than 300 on high sliding scale Has provider been notified: Yes 09/12/19 08:17 Consult to Physical Therapy Evaluate & Treat Comment: post op weakness and enc ambulation Physician Instructions: Evaluate and Treat Discharge provider: Dandre Bauman MD Summary Hospital Course Discharge Diagnosis: Ischemic small bowel Hospital Course: Patient presented with a small-bowel obstruction no history of abdominal surgery and clear transition point of obstruction on CT.. He was taken the operating room underwent exploratory laparotomy and small-bowel resection with a primary ancz-fj-aoxw anastomosis. His pathology demonstrated ischemic small bowel. Postoperatively he did well. He was managed with a nasogastric tube until he had return of bowel function and then was gradually advanced. On the day of discharge he is tolerating a regular diet having bowel movements passing gas ambulatory and without fever. Status at Discharge Cognitive/behavioral status at discharge: oriented Functional status at discharge: independent ambulation Overall status at discharge: patient is back to baseline Time Spent with Patient Time spent: Greater than 30 minutes Exam Vital Signs (past 8 hours): - 09/14/19 08:00 09/14/19 08:53 Temperature 99.9 F H Pulse Rate 67 Respiratory Rate 17 Blood Pressure 178/82 H 178/82 H Pulse Oximetry 93 Fraction of Inspired Oxygen 40 Oxygen Delivery Method Room Air Oxygen Flow Rate 0 Narrative Exam Narrative: General adult male alert oriented no acute distress Chest nonlabored respiration Abdomen soft incision clean dry intact mike. Objective Labs Result Diagrams: 09/14/19 04:52 09/14/19 04:52 Labs: Laboratory Results - last 24 hr 09/14/19 09/14/19 04:52 04:52 WBC 11.6 H RBC 4.15 L Hgb 12.6 L Hct 36.5 L MCV 88.0 MCH 30.3 MCHC 34.5 RDW 13.8 Plt Count 174 Neut % (Auto) 66.3 Lymph % (Auto) 16.0 L Stewart % (Auto) 9.6 Eos % (Auto) 7.4 H Baso % (Auto) 0.7 Neut # (Auto) 7700 H Lymph # (Auto) 1800 Stewart # (Auto) 1100 H Eos # (Auto) 900 H Baso # (Auto) 100 Sodium 139 Potassium 3.6 Chloride 106 Carbon Dioxide 28 BUN 19 Creatinine 0.70 Estimated GFR > 60.0 BUN/Creatinine Ratio 27.1 H Glucose 113 H Calcium 7.9 L Magnesium 2.1 Discharge Plan Discharge Plan Patient Disposition: Home Discharge orders & Medications Prescriptions: New oxycodone 5 mg tablet 5 mg PO Q6H PRN (Reason: pain) Qty: 30 RF: 0 acetaminophen [Tylenol] 325 mg capsule 650 mg PO QID PRN (Reason: pain) Qty: 60 RF: 0 Continued losartan 50 mg tablet 50 mg PO DAILY RF: 0 rosuvastatin 40 mg tablet 40 mg PO DAILY RF: 0 Levemir FlexTouch U-100 Insuln 100 unit/mL (3 mL) insulin pen 80 unit SUBCUT DAILY RF: 0 Trulicity 0.75 mg/0.5 mL pen injector 0 mg SUBCUT QWEEK RF: 0 insulin aspart U-100 [Novolog U-100 Insulin aspart] 100 unit/mL Solution 0 unit subcut PRN PRN (Reason: sliding scale) RF: 0 Diabetic Vitamin 800-150-50 mcg-mg-mg Capsule 1 cap PO DAILY RF: 0 Chondroitin Sulfate 1 tab PO DAILY RF: 0 PreserVision AREDS 1 cap PO DAILY RF: 0 Follow up/Referrals: Dandre Bauman MD [Physician] - 2 Weeks (09-29-2019 @ 0930) Diet/Activity/Treatments Diet: Carb-consistent/Diabetic Activity: No lifting >20 lbs x 4 weeks. Walking only for exercise for 4 weeks[address] while taking narcotics. Skin/Wound/Dressing Care Report to your healthcare provider any signs of infection, such as:: chills, fever, increased pain, unusual drainage and unusual redness Visit Report/Discharge Packet Instructions: DI for Prescription Opioid Use, [facility]: Wound Care Discharges patient from system. Discharge Date/Time: 09/14/19 12:50 Quality VTE Deep Vein Thrombosis/Pulmonary Embolism Present on Admission: No
== END 2019-09-14 12:50 | disposition home or self-care (01) | DRG 329 ==
LOC: ED 13:18 → AC 13:22 → ICU 09-10 13:25 → AC 09-13 12:42
PROVIDERS: Internal Medicine; Surgery; Admitting Provider Surgery; Emergency Provider Nurse Practitioner Family; Referring Provider Emergency Medicine; Visit Provider Surgery
PROC: 0DB80ZZ Excision of Small Intestine, Open Approach (ICD-10-PCS; CPT 49000; principal; 2019-09-09 16:00)
DX: K56.609 Unspecified intestinal obstruction, unspecified as to partial versus complete obstruction (principal); K55.021 Focal (segmental) acute infarction of small intestine; J18.9 Pneumonia, unspecified organism; J96.01 Acute respiratory failure with hypoxia; J98.11 Atelectasis; J95.89 Other postprocedural complications and disorders of respiratory system, not elsewhere classified; K80.20 Calculus of gallbladder without cholecystitis without obstruction; E11.65 Type 2 diabetes mellitus with hyperglycemia; Z79.4 Long term (current) use of insulin; E78.5 Hyperlipidemia, unspecified; I10 Essential (primary) hypertension
CPT/HCPCS: 36415; 44120; 47600; 71045; 71250; 74177; 76705; 80048; 80053; 81001; 82962; 83036; 83605; 83690; 83735; 84100; 84145; 85025; 87797; 93005; 94660; 94667; 94760; 94762; 96374; 96375; 96376; 97116; 97162; 97530; 99222; 99285; C9113; J1170; J1650; J1940; J2270; J2405; J2543; J2704; J3010; J3480; J7050; Q9967

== ENCOUNTER → 2021-01-22 10:23 | Outpatient (CLI) | payer MEDICARE, OTHER, SELFPAY ==
[2021-01-03 10:37] VITALS: PULSE 93; RESP 20; O2SAT 94; BMI 35.6
[2021-01-22 11:29] LABS: COVID19 -Nasal RAPID Negative (Negative)
== END ==
PROVIDERS: PCP Family Medicine; Referring Provider Surgery; Visit Provider Surgery
DX: Z20.822 Contact with and (suspected) exposure to COVID-19 (principal)
CPT/HCPCS: 87635; C9803

== ENCOUNTER 2021-01-23 06:38 | Day surgery (SDC) | payer MEDICARE, OTHER, SELFPAY ==
[2021-01-03 10:37] VITALS: PULSE 93; RESP 20; O2SAT 94; BMI 35.6
[2021-01-22 08:20] VITALS: BMI 37.2
[2021-01-23] VITALS (8 sets, daily range): BP systolic 113–183; BP diastolic 65–76; PULSE 70–76; RESP 14–16; TEMP 36.4–36.7; O2SAT 91–98; BMI 37.2
--- NOTE | 2021-01-23 07:31 | PM.PREOP ---
Pre-operative Note Interval Note History & Physical reviewed/Exam performed by Physician: Yes Changes to H&P: No
[2021-01-23] MEDS: LACTATED RINGERS 1,000 ML 42 ML IV ×2 (07:33→08:27)
[2021-01-23] MEDS: CEFAZOLIN 1 GM VIAL 2 GM IV (07:50)
--- NOTE | 2021-01-23 08:11 | SUR.OPER ---
Supine on padded OR bed, head on pillow, arms secured on padded arm boards at <90 degrees abduction, legs uncrossed, safety belt at thigh, tape over blanket over lower legs.
[2021-01-23] MEDS: BUPIVACAINE 0.25% (PF) VIAL 30 ML INJ (08:15)
--- NOTE | 2021-01-23 09:58 | P.OP_ITS ---
Operative Date/Time/Diagnoses Date of procedure: 01/23/21 Time of procedure: 09:59 Pre-op diagnosis: Incisional ventral hernia Post-op diagnosis: same Procedure & Clinicians Procedure: Open ventral hernia repair with implantation of mesh Myocutaneous release of the external oblique Same procedure as scheduled: Yes Indications: 75-year-old man status post exploratory laparotomy history of obesity and diabetes presents for elective repair of incisional hernia Surgeon: Dandre Bauman Click Yes if Unassisted: Yes Anesthesia Type: General Operative Notes Findings: 6 cm fascial defect superior to the umbilicus. Specimen(s): none sent Estimated Blood Loss (mL): 50 Procedure in detail: Patient was brought to the operating room placed supine on the table. Bilateral lower extremity compression devices were applied. They received 2 g of Ancef prior to skin incision. Prepped and draped in sterile f ashion. Time-out was performed. A midline incision was made through the previous scar. Subcutaneous tissue was divided and the fascia was exposed. The fascia had a defect of approximately 6 cm that was running from the umbilicus in a superior direction. The fascia was grasped elevated and sharply opened. There were minimal intra abdominal adhesions that were sharply lysed. The peritoneum was then sharply dissected off of the fascia bilaterally. The peritoneum was then closed in running fashion using 3-0 Vicryl. The subcutaneous tissue was then dissected off of the midline fascia to raise subcutaneous skin flaps bilaterally. The fascia could not close without tension and so the external oblique was sharply incised lateral to the rectus muscle. Release of the external oblique provided adequate mobility to close the midline fascia without tension. A 8 x 6 Bard Ventralex mesh patch was selected. It was placed smooth side down on the peritoneum and the fascia was then secured in interrupted fashion to the mesh with Eithbond suture. The fascia was then closed in interrupted fashion along the midline. Hemostasis was checked. The subcutaneous tissue was then reapproximated using Vicryl skin closed with running 4-0 Vicryl followed by the application of Dermabond. Patient emerged from anesthesia was extubated and transferred to recovery room in stable condition. Complications: none Post-operative Condition: stable Disposition: same day surgery
[2021-01-23] MEDS: OXYCODONE/ACETAMINOPHEN 5/325 TABLET 1 TAB PO (10:18)
== END 2021-01-23 10:50 | disposition home or self-care (01) ==
PROVIDERS: PCP Family Medicine; Referring Provider Surgery; Visit Provider Surgery
PROC: (CPT 49560; principal; 2021-01-23 07:45)
DX: K43.2 Incisional hernia without obstruction or gangrene (principal); E66.9 Obesity, unspecified; E11.9 Type 2 diabetes mellitus without complications; E78.5 Hyperlipidemia, unspecified; I10 Essential (primary) hypertension; Z68.38 Body mass index [BMI] 38.0-38.9, adult; Z79.4 Long term (current) use of insulin
CPT/HCPCS: 49560; 49568; C1781; J0330; J0690; J1100; J2405; J2704; J3010

== ENCOUNTER 2021-02-02 22:18 | Observation (INO) | payer MEDICARE, OTHER, SELFPAY ==
[2021-01-03 10:37] VITALS: PULSE 93; RESP 20; O2SAT 94; BMI 35.6
[2021-02-02 23:00] VITALS: BP 145/83; PULSE 84; RESP 18; TEMP 37.9; O2SAT 94
[2021-02-02 23:01] VITALS: BMI 37.3
--- NOTE | 2021-02-02 23:01 | PC.NURSE ---
Received pt from [facility] via medics awake, alert, conversant. Pt's abdomen is large with scattered purple bruises to abdomen. Abdomen is large. ABD pads in place to [facility] writer [facility]. Bloody drainage noted distal aspects. Slider board to transfer pt from stretcher to bed. Saline lock in place to left ac.
[2021-02-02 23:25] VITALS: BP 146/70; PULSE 79; RESP 18; TEMP 37.1; O2SAT 92
[2021-02-03] VITALS (17 sets, daily range): BP systolic 97–156; BP diastolic 51–79; PULSE 77–94; RESP 11–20; TEMP 36.2–37.3; O2SAT 90–97; BMI 37.3
[2021-02-03] MEDS: SODIUM CHLORIDE 0.9% 1,000 ML 150 ML IV ×2 (07:10→16:40)
--- NOTE | 2021-02-03 08:15 | PM.HP.1 ---
History of Present Illness History of Present Illness Chief complaint: Abdominal hematoma Narrative: 75-year-old man underwent a open retro rectus ventral hernia repair with component separation 2 weeks ago. He developed significant bruising of the abdominal wall shortly after the operation. Yesterday he had spontaneous drainage of hematoma from the lower abdominal wall. CT performed at an outside institution demonstrates 18 cm hematoma of the abdominal wall. He was transferred from [facility] last night. He is not on anticoagulation. Patient History Medical History Arthritis Diabetes Elevated cholesterol Gastritis Hyperlipidemia Hypertension Pneumonia Surgical History History of cataract surgery History of esophagogastroduodenoscopy (EGD) History of surgery (05/22/89) Hx of abdominal surgery (09/09/19) Family & Social History Family History Father Aortic aneurysm rupture Mother Cancer Brother Diabetes mellitus Daughter Diabetes mellitus Social History: household members none Prior Living Arrangements House Safety & Behavioral: Suicidal Ideation Description None Tobacco & Substance use: Tobacco type cigarettes Smoking Status Former smoker alcohol intake current alcohol intake frequency holiday/special occasion Substance Use Type does not use Meds Home Medications and Allergies Home Medications Medication Instructions Recorded Confirmed Type insulin aspart U-100 100 unit/mL 22 unit SUBCUT TID 09/09/19 01/23/21 History subcutaneous solution (Novolog U-100 Insulin aspart) insulin detemir U-100 100 unit/mL 85 unit SUBCUT DAILY 09/09/19 01/23/21 History (3 mL) subcutaneous pen (Levemir FlexTouch U-100 Insulin) losartan 50 mg tablet 50 mg PO DAILY 09/09/19 01/23/21 History rosuvastatin 40 mg tablet 40 mg PO DAILY 09/09/19 01/23/21 History acetaminophen 325 mg capsule 650 mg PO QID PRN #60 cap 01/23/21 Rx (Tylenol) docusate sodium 100 mg capsule 100 mg PO BID #30 cap 01/23/21 Rx (Colace) ibuprofen 200 mg tablet 400 mg PO Q6H #60 tab 01/23/21 Rx oxycodone 5 mg tablet 5 mg PO Q8H PRN #40 tab 01/23/21 Rx Allergies Allergy/AdvReac Type Severity Reaction Status Date / Time No Known Drug Allergies Allergy Verified 01/23/21 07:08 Review of Systems Review of Systems ROS: Yes All systems reviewed with the patient and are negative except as otherwise documented Exam Vital Signs (past 8 hours): - 02/03/21 03:29 Temperature 98.8 F Pulse Rate 83 Respiratory Rate 18 Blood Pressure 143/76 H Pulse Oximetry 90 L Oxygen Delivery Method Room Air Oxygen Flow Rate 0 Narrative Exam Narrative: GENERAL-adult male, no acute distress HEENT-no scleral icterus, hearing intact NECK-no JVD, trachea midline CVS- regular rate, no peripheral edema RESP-unlabored respiratory effort, no audible wheezing GI-extensive ecchymoses of the anterior abdominal wall. Hematoma from the lower midline incision. MSK-no cyanosis or clubbing, extremities without deformity SKIN-warm, dry NEURO-alert and oriented, no focal deficits PYSCH-Appropriate mood and affect Assessment & Plan Assessment and plan (1) Abdominal wall hematoma: Status: Acute Assessment & Plan narrative: 75-year-old man 2 weeks status post open recto rectus ventral hernia repair with a postoperative abdominal wall hematoma. The hematoma is extensive doubtful that he has any active bleeding. Given the size of the hematoma risk of mesh infection, I recommended that we proceed to the operating room for evacuation of the hematoma. Technical details of the procedure were discussed with the patient. We discussed operative risks including bleeding infection damage to surrounding structures chronic wound formation. His questions have been answered and he is in agreement with this plan. Quality VTE Deep Vein Thrombosis/Pulmonary Embolism Present on Admission: No
[2021-02-03 08:41] LABS: COVID19 -Nasal RAPID Negative (Negative)
[2021-02-03] MEDS: INSULIN REGULAR 100 UNIT/ML 3 ML VIAL 8 UNIT SUBCUT ×2 (08:55→10:53)
[2021-02-03] MEDS: CEFAZOLIN 1 GM VIAL 2 GM IV (09:11)
[2021-02-03] MEDS: LACTATED RINGERS 1,000 ML 42 ML IV (09:18)
--- NOTE | 2021-02-03 09:22 | SUR.OPER ---
Supine on padded OR bed, head on pillow, arms secured on padded arm boards at <90 degrees abduction, legs uncrossed, safety belt at thigh, tape over blanket over lower legs.
--- NOTE | 2021-02-03 10:22 | P.OP_ITS ---
Operative Date/Time/Diagnoses Date of procedure: 02/03/21 Time of procedure: 10:22 Pre-op diagnosis: abdominal wall hematoma Post-op diagnosis: same Procedure & Clinicians Procedure: Evacuation of abdominal wall hematoma Same procedure as scheduled: Yes Indications: 2 weeks status post open ventral hernia repair retro rectus with development of a large abdominal wall hematoma. Surgeon: Dandre Bauman Anesthesia Type: General Operative Notes Findings: No active bleeding. Large joint hematoma superficial to the fascia Specimen(s): none sent Estimated Blood Loss (mL): 0 Procedure in detail: Patient was brought to the operating room placed supine on the table. Bilateral lower extremity compression devices were applied. He received Ancef prior to skin incision. The midline incision was opened. There was a large volume of hematoma anterior to the fascia. Hematoma was evacuated. Wound was pulse lavaged with 6 L of saline. There was no evidence of active hemorrhage. There was a small gapping of the anterior fascia at the superior aspect of the ventral hernia repair. The mesh was intact. The fascia was then reapproximated using interrupted 1. PDS suture. Inspection for hemostasis was made. The subcutaneous tissue was reapproximated using a running Vicryl suture. Two hundred nineteen Luxembourgish Kt drains were placed into the wound from the left and right side to lay anterior to the fascia. The skin was closed with interrupted nylon suture. Patient tolerated the procedure well was extubated transferred to recover room in stable condition. Complications: none Post-operative Condition: stable Disposition: Acute Care
[2021-02-03] MEDS: INSULIN LISPRO 100 UNIT/ML 3ML VIAL 22 UNIT SUBCUT ×2 (12:08→16:42)
[2021-02-03] MEDS: LOSARTAN 50 MG TABLET PO (12:10)
[2021-02-03] MEDS: INSULIN GLARGINE 100 UNIT/ML 3ML PEN 85 UNIT SUBCUT (12:18)
--- NOTE | 2021-02-03 12:27 | SUR.PHASEI ---
Late entry: Stable PACU stay. Pt arrived to PACU with patent airway, NC 02 added soon after arrival for r/a sats of 91%. Pt denied pain, nausea tolerated ice chips. Pt brought up to room on and left with JanelleRN and left in stable condition.
--- NOTE | 2021-02-03 13:34 | PC.NURSE ---
Patient returned from PACU via bed. NS @ 150cc/hr infusing per order. Abdominal dsg CDI, binder intact. SCD's on BLE. A/O x 3, arrived on 4L O2, currently on 3 L, 96%, lungs CTA, denies SOB, breathing unlabored. Will continue to titrate off O2. Patient reports dull pain in abdomen, prefers not to take pain medication at this time. BT active x 4. Pillow provided for splinting during cough. VSS. Pulses equal. Patient denies numbness or tingling in extremities. Call light in reach, cont pulse ox remains on at this time.
--- NOTE | 2021-02-03 14:07 | CM.DANOTE ---
DCP: Case received, EMR reviewed and met with patient. Introduced self and role. Was able to obtain information from patient regarding his baseline activity level prior to hospitalization, as well as his current living situation. DCP assessment completed with information currently available. Patient is a 75 year old male who admitted yesterday evening to the care of the hospitalist team. PCP: Dr. Hurtado. Payer: confirmed: [email or web address] for [employer]. Patient came to the hospital via ambulance secondary to having some abdominal discomfort. He had ventral hernia repair approximately 2 weeks ago, and ended up with bruising of the abdominal wall, abdominal hematoma. Met with patient in his room. He indicated that in 2019 he had a bowel resection, and ended up having problems after that. Confirmed that he is a , he stated that his proximately a year ago. He lives alone in [place], and indicated that he has his brother/[id number]-yg-tuy that live nearby. Patient indicated that he is independent at his baseline, mows his own lawn. P: DCP to continue to follow. Patient should be able to go home when he is medically stable. Ginny Lopez RN/[employer] Clerk
[2021-02-03] MEDS: cephALEXin 250 MG CAPSULE 500 MG PO ×2 (14:55→22:26)
[2021-02-03] MEDS: ACETAMINOPHEN 325 MG TABLET 650 MG PO (16:39)
--- NOTE | 2021-02-03 23:40 | PC.NURSE ---
A&Ox4 throughout shift. VSS. When pt sleeping, oxygen sats decrease <92%; placed back on 1LNC. C/o minimal pain. Denies nausea, tolerating PO. Voiding. LUCHO drains small amount dark red output. Blood glucose 53 at 2100. Pt. asymptomatic. Ate snacks, rechecked, blood glucose 89. NOC RN informed in report.
[2021-02-04] VITALS (7 sets, daily range): BP systolic 139–143; BP diastolic 80; PULSE 72–75; RESP 16–18; TEMP 36.6–37; O2SAT 91–97
[2021-02-04] MEDS: SODIUM CHLORIDE 0.9% 1,000 ML 150 ML IV
--- NOTE | 2021-02-04 08:59 | PC.NURSE ---
Addendum entered by Franci Fitzpatrick R.N. 02/04/21 12:55: Patient discharged via wheelchair with family. Addendum entered by Franci Fitzpatrick R.N. 02/04/21 11:18: Gave patient instructions regarding follow up appointment in 2 weeks or if drains are less than 30ml/day to contact office. Patient verbalized understanding. Patient knows to maintain binder for 4 weeks, we discussed s/s of worsening condition, drain management, antibiotic therapy, and activity limitations. Patient verbalized understanding to all of the above. Both IV's discontinued, drain's emptied, patient getting dressed independently. Denied needing help. Original Note: Patient A/O x 3. Up to chair with SBA. LUCHO drains x2 intact, midline dressing CDI, abdominal binder on and intact. Patient reports minimal pain, does not require pain medication at this time. Patient is 91-93% on room air, denies feeling SOB or increased WOB, RR WNL, unlabored. BT active x 4, +flatus, voiding in urinal. Call light in reach, SCD's removed for activity to chair. Will give break and reapply when back to bed. Patient denies further needs at this time.
[2021-02-04] MEDS: INSULIN LISPRO 100 UNIT/ML 3ML VIAL 22 UNIT SUBCUT (09:02)
[2021-02-04] MEDS: ATORVASTATIN 20 MG TABLET 80 MG PO (09:02)
[2021-02-04] MEDS: INSULIN GLARGINE 100 UNIT/ML 3ML PEN 85 UNIT SUBCUT (09:03)
[2021-02-04] MEDS: cephALEXin 250 MG CAPSULE 500 MG PO (09:03)
[2021-02-04] MEDS: LOSARTAN 50 MG TABLET PO (09:03)
--- NOTE | 2021-02-04 10:36 | P.PN_ITS ---
Subjective Subjective Date Patient Seen: 02/04/21 Time Patient Seen: 09:00 Exam Vital Signs (past 8 hours): - 02/04/21 03:00 02/04/21 04:00 02/04/21 08:00 Temperature 98.6 F 98 F Pulse Rate 73 72 Respiratory Rate 18 18 Blood Pressure 143/80 H 139/80 Pulse Oximetry 93 93 92 02/04/21 08:18 02/04/21 08:19 02/04/21 09:03 Temperature Pulse Rate 75 75 72 Respiratory Rate 16 Blood Pressure 139/80 Pulse Oximetry 97 95 Oxygen Delivery Method Room Air Oxygen Flow Rate 2 Narrative Exam Narrative: wound intact. drains decreasing in amount. vitals and hct stable [facility] Medical History Arthritis Diabetes Elevated cholesterol Gastritis Hyperlipidemia Hypertension Pneumonia Surgical History History of cataract surgery History of esophagogastroduodenoscopy (EGD) History of surgery (05/22/89) Hx of abdominal surgery (09/09/19) Family History Father Aortic aneurysm rupture Mother Cancer Brother Diabetes mellitus Daughter Diabetes mellitus Social History marital status: household members: none housing: house Smoking Status: Former smoker alcohol intake: current substance use type: does not use Assessment & Plan Assessment & Plan narrative: S/p hematoma drainage following ventral hernia repair. Stable Plan: home Quality VTE Deep Vein Thrombosis/Pulmonary Embolism Present on Admission: No
--- NOTE | 2021-02-04 10:39 | PM.DS.1 ---
History of Present Illness History of Present Illness Date Patient Seen: 02/01/21 Date of Onset of Symptoms: 02/01/21 Chief complaint: Abdominal hematoma Discharge Providers Provider Date of admission: 02/02/21 22:18 Discharge Date: 02/04/21 Primary care physician: Freddie Hurtado DO Discharge provider: Shavonne Watson MD Summary Hospital Course Discharge Diagnosis: post op bleed on ventral hernia repair. S/P wash out and drains Hospital Course: uncomplicated Status at Discharge Cognitive/behavioral status at discharge: oriented Functional status at discharge: independent ambulation Overall status at discharge: patient is back to baseline Time Spent with Patient Time spent: Less than 30 minutes Exam Vital Signs (past 8 hours): - 02/04/21 03:00 02/04/21 04:00 02/04/21 08:00 Temperature 98.6 F 98 F Pulse Rate 73 72 Respiratory Rate 18 18 Blood Pressure 143/80 H 139/80 Pulse Oximetry 93 93 92 02/04/21 08:18 02/04/21 08:19 02/04/21 09:03 Temperature Pulse Rate 75 75 72 Respiratory Rate 16 Blood Pressure 139/80 Pulse Oximetry 97 95 Oxygen Delivery Method Room Air Oxygen Flow Rate 2 Narrative Exam Narrative: bruising of abdomin now with extension via gravity. abdomin soft, obese wound dry and intact drain serosang [facility] Medical History Arthritis Diabetes Elevated cholesterol Gastritis Hyperlipidemia Hypertension Pneumonia Surgical History History of cataract surgery History of esophagogastroduodenoscopy (EGD) History of surgery (05/22/89) Hx of abdominal surgery (09/09/19) Family History Father Aortic aneurysm rupture Mother Cancer Brother Diabetes mellitus Daughter Diabetes mellitus Social History marital status: household members: none housing: house Smoking Status: Former smoker alcohol intake: current substance use type: does not use Discharge Plan Discharge Plan Patient Disposition: Home Provider Discharge Comment: 5 day keflex Discharge orders & Medications Prescriptions: New cephalexin 250 mg Capsule 500 mg PO TID Qty: 15 RF: 0 Continued losartan 50 mg tablet 50 mg PO DAILY RF: 0 rosuvastatin 40 mg tablet 40 mg PO DAILY RF: 0 Levemir FlexTouch U-100 Insuln 100 unit/mL (3 mL) insulin pen 85 unit SUBCUT DAILY RF: 0 insulin aspart U-100 [Novolog U-100 Insulin aspart] 100 unit/mL Solution 22 unit subcut TID RF: 0 ibuprofen 200 mg tablet 400 mg PO Q6H Qty: 60 RF: 0 docusate sodium [Colace] 100 mg capsule 100 mg PO BID Qty: 30 RF: 0 oxycodone 5 mg tablet 5 mg PO Q8H PRN (Reason: pain) Qty: 40 RF: 0 acetaminophen [Tylenol] 325 mg capsule 650 mg PO QID PRN (Reason: pain) Qty: 60 RF: 0 Follow up/Referrals: Freddie Hurtado DO [Primary Care Provider] - Dandre Bauman MD [Physician] - (2 weeks or can come by office for drain removal once they are less than 30 ml a day) Diet/Activity/Treatments Diet: Diet as Tolerated Activity: no heavy lifting for 4 weeks (greater than 15 lbs). May shower with wound uncovered. Skin/Wound/Dressing Care Report to your healthcare provider any signs of infection, such as:: chills, fever, increased pain, unusual drainage and unusual redness Dressing: dry dressing as needed Other wound treatment: wear abdominal binder for 4 weeks Visit Report/Discharge Packet Instructions: [facility]: Wound Care Stand Alone Forms: Surgery Discharge Discharge Data Primary Care Provider: Freddie Hurtado Attending Provider: Dandre Bauman Quality VTE Deep Vein Thrombosis/Pulmonary Embolism Present on Admission: No
== END 2021-02-04 12:55 | disposition home or self-care (01) ==
PROVIDERS: Admitting Provider Surgery; PCP Family Medicine; Referring Provider Surgery; Visit Provider Surgery
PROC: (CPT 10140; principal; 2021-02-03 09:30)
DX: L76.32 Postprocedural hematoma of skin and subcutaneous tissue following other procedure (principal); E11.9 Type 2 diabetes mellitus without complications; I10 Essential (primary) hypertension; E78.5 Hyperlipidemia, unspecified; E78.00 Pure hypercholesterolemia, unspecified; Z79.4 Long term (current) use of insulin; Z20.822 Contact with and (suspected) exposure to COVID-19
CPT/HCPCS: 10140; 82962; 87635; 94760; 94762; 99232; C9803; G0378; G0379; J0330; J0690; J1815; J2405; J2704; J3010

== ENCOUNTER → 2021-10-01 10:18 | Outpatient (CLI) | payer MEDICARE, OTHER, SELFPAY ==
[2021-01-03 10:37] VITALS: PULSE 93; RESP 20; O2SAT 94
[2021-10-01 12:55] LABS: COVID19 -Nasal RAPID Negative (Negative)
== END ==
PROVIDERS: PCP Family Medicine; Referring Provider Surgery; Visit Provider Surgery
DX: Z01.812 Encounter for preprocedural laboratory examination (principal); Z20.822 Contact with and (suspected) exposure to COVID-19
CPT/HCPCS: 87635; C9803

== ENCOUNTER 2021-10-03 08:22 | Day surgery (SDC) | payer MEDICARE, OTHER, SELFPAY ==
[2021-01-03 10:37] VITALS: PULSE 93; RESP 20; O2SAT 94
[2021-09-28 09:16] VITALS: BMI 37.2
[2021-10-03] VITALS (12 sets, daily range): BP systolic 111–162; BP diastolic 55–87; PULSE 72–90; RESP 12–22; TEMP 36.1–36.3; O2SAT 92–96; BMI 37.2
[2021-10-03] MEDS: LACTATED RINGERS 1,000 ML 42 ML IV ×2 (09:05→12:23)
--- NOTE | 2021-10-03 10:22 | PM.HP.1 ---
History of Present Illness History of Present Illness Date Patient Seen: 10/03/21 Time Patient Seen: 10:22 Chief complaint: SDC Narrative: A 76-year-old man history of multiple abdominal surgeries here with a reducible over umbilical hernia here for elective repair. She is no acute concerns today. Patient History Medical History Arthritis Elevated cholesterol Former smoker Gastritis Hyperlipidemia Hypertension Insulin dependent diabetes mellitus RENE (obstructive sleep apnea) Pneumonia Surgical History H/O ventral hernia repair History of cataract surgery History of esophagogastroduodenoscopy (EGD) History of surgery (05/22/89) Hx of abdominal surgery (09/09/19) Family & Social History Family History Father Aortic aneurysm rupture Mother Cancer Brother Diabetes mellitus Daughter Diabetes mellitus Social History: household members spouse,none Tobacco & Substance use: Tobacco type cigarettes Smoking Status Former smoker alcohol intake current alcohol intake frequency holiday/special occasion Substance Use Type does not use Meds Home Medications and Allergies Home Medications Medication Instructions Recorded Confirmed Type insulin aspart U-100 100 unit/mL 11 unit SUBCUT TID 09/09/19 10/03/21 History subcutaneous solution (Novolog U-100 Insulin aspart) insulin detemir U-100 100 unit/mL 30 unit SUBCUT DAILY 09/09/19 10/03/21 History (3 mL) subcutaneous pen (Levemir FlexTouch U-100 Insulin) losartan 50 mg tablet 50 mg PO DAILY 09/09/19 10/03/21 History rosuvastatin 40 mg tablet 40 mg PO DAILY 09/09/19 07/16/21 History acetaminophen 325 mg capsule 650 mg PO QID PRN #60 cap 01/23/21 10/03/21 Rx (Tylenol) docusate sodium 100 mg capsule 100 mg PO BID #30 cap 01/23/21 09/28/21 Rx (Colace) ibuprofen 200 mg tablet 400 mg PO Q6H #60 tab 01/23/21 10/03/21 Rx oxycodone 5 mg tablet 5 mg PO Q8H PRN #40 tab 01/23/21 07/16/21 Rx cephalexin 250 mg capsule 500 mg PO TID #15 cap 02/04/21 07/16/21 Rx Allergies Allergy/AdvReac Type Severity Reaction Status Date / Time No Known Drug Allergies Allergy Verified 10/03/21 08:48 Exam Vital Signs (past 8 hours): - 10/03/21 08:53 Temperature 97 F L Pulse Rate 79 Respiratory Rate 12 Blood Pressure 146/87 H Pulse Oximetry 93 Oxygen Delivery Method Room Air Narrative Exam Narrative: General adult male alert oriented no acute distress Chest nonlabored respirations Abdomen soft and nontender nondistended. Well-healed midline scar. Reducible umbilical hernia. Assessment & Plan Assessment and plan (1) Umbilical hernia: Qualifiers: Obstruction and gangrene presence: without obstruction or gangrene Qualified Code(s): K42.9 - Umbilical hernia without obstruction or gangrene Status: Acute Assessment & Plan narrative: 76-year-old man multiple previous abdominal surgeries here with a reducible umbilical hernia for elective repair. Operative details were discussed. Operative risks including bleeding, infection, damage to surrounding structures, recurrence were discussed. His questions have been answered he is in agreement with this plan. Time Spent With Patient Critical Care time: I spent a total of [] minutes of critical care time on this patient's care today; this time is exclusive of procedural time.
--- NOTE | 2021-10-03 10:43 | SUR.OPER ---
Supine on padded OR bed, head on pillow, arms secured on padded arm boards at <90 degrees abduction, legs uncrossed, safety belt at thigh, tape over blanket over lower legs.
[2021-10-03] MEDS: CEFAZOLIN 2 GM/20 ML SYRINGE IV (10:48)
[2021-10-03] MEDS: BUPIVACAINE 0.25% (PF) VIAL 30 ML INJ (10:49)
--- NOTE | 2021-10-03 12:47 | P.OP_ITS ---
Operative Date/Time/Diagnoses Date of procedure: 10/03/21 Time of procedure: 12:47 Pre-op diagnosis: Umbilical hernia Post-op diagnosis: other (Incisional ventral hernia) Procedure & Clinicians Procedure: Open incisional hernia repair Bilateral myocutaneous flap development (component separation) Lysis of adhesions Same procedure as scheduled: Yes Indications: Obsese male prior colectomy with a reducible incisional hernia periumbilical Surgeon: Dandre Bauman Anesthesia Type: General Operative Notes Findings: honduran cheese fascial defect periumbilical spanning 10 cm. Specimen(s): none sent Estimated Blood Loss (mL): 20 Procedure in detail: Patient was brought to the operating room placed supine on the table. Bilateral lower extremity compression devices were applied. They received 2 g of Ancef prior to skin incision. Prepped and draped in sterile fashion, ioban was placed. Time-out was performed. A midline incision was made superior to the umbilicus with a knife. The previous midline scar was excised. The subcutaneous tissue was divided to expose the midline fascia. The fascia had a honduran cheese defect extending from the umbilicus superiorly for approximately 8 cm. The fascia was grasped elevated and sharply opened. Complete lysis of all visceral adhesions was performed with sharp dissection. A towel was then placed over the visceral content to protect it out of harms way. The retromuscular space was entered by incising the posterior rectus sheath approximately 1 cm from its edge. The retromuscular plane was developed using electrocautery with care to protect the neurovascular structures. The retrorectus space was developed in the same fashion on the contralateral side. The spaces were then connected superiorly and inferiorly just superior to the umbilicus. The posterior sheath would not close without undue tension. Therefore a component separation was performed bilaterally. The posterior sheath was incised lateral to the rectus to expose the transversalis fascia. The myocutaneous flap then advanced to the midline without undue tension and was closed in running fashion with 2. PDS suture. I selected 2 Bard Ventralex 8 x 4 cm patches with a anti- adhesive surface to the posterior sheath. Each mesh was anchored with interrupted Ethibond in transfascial fashion in four quadrants using the sasha west device such that the mesh lay under physiologic tension. A 19 [place] drain was placed anterior to the mesh and benhind the anterior sheath brought out through the skin. The anterior sheath/ linea alba was then closed in interrupted fashion with Ethibond without tension. The anterior sheath closure was then reinforced with running 2-0 vicryl suture. Hemostasis was checked. The subcutaneous tissue was then reapproximated using Vicryl skin closed with running 4-0 Monocryl followed by the application of Dermabond. Patient emerged from anesthesia was extubated and transferred to recovery room in stable condition. Complications: none Post-operative Condition: stable Disposition: same day surgery
[2021-10-03] MEDS: ONDANSETRON 4 MG/2 ML INJ IV (13:18)
[2021-10-03] MEDS: fentaNYL 250 MCG/5 ML INJ IV (13:20)
[2021-10-03] MEDS: METOCLOPRAMIDE 10 MG/2 ML INJ IV (13:45)
--- NOTE | 2021-10-03 13:48 | SUR.PHASEI ---
Medicated for nausea, no emesis or wretching. Pain 3/10, declined medication. Pt has apnea periods with desat into the upper 80s. Responds readily to voice and suggestion to deep breath. Sat up to 98%. Patient states that he had a sleep study about 5 years ago and that a CPAP was not recommended. RN recommends that patient follows up for evaluation. He states that he sleeps in a recliner sometimes; encouraged patient to sleep there today/overnight, and while on narcotics.
--- NOTE | 2021-10-03 14:26 | SUR.PHASEII ---
1428-TAP block started by anesthesia. 1452-TAP blocks bilaterally completed. Patient tolerated well.
--- NOTE | 2021-10-03 16:33 | SUR.PHASEII ---
1744-dr mitchell consulted about patients oxygen saturation. hovers 89-92% on room air. incentive spirometer completed several times. patient states does this at home regularly as well. dr mitchell states is ok to send patient home at this time. patient is motivated and wishes for same. patient has been monitored for several hours with no ill effects. dressing remains c/d/i. abdomen rounded and soft. abdominal binder in place. LUCHO instructions given. has had these in the past as well. drainage record given along with dc instructions. patient states understanding and is comfortable with proceeding.
== END 2021-10-03 16:15 | disposition home or self-care (01) ==
PROVIDERS: PCP Family Medicine; Referring Provider Surgery; Visit Provider Surgery
PROC: (CPT 49560; principal; 2021-10-03 10:15)
DX: K43.2 Incisional hernia without obstruction or gangrene (principal)
CPT/HCPCS: 49560; 49568; 82962; J0330; J0690; J2405; J2704; J2765; J3010